=== PATIENT | female | born 1980 | race Caucasian/White ===

== ENCOUNTER → 2016-05-30 | Outpatient (CLI) | payer OTHER ==
[~2016-05-30] MED LIST: ACET-1256 PO; ACET325T96 PO; CIPR-255 PO; CYAN3INJ IM; DIPH25CA65 PO; HYDR-5688 PO; HYDR25CA PO; LISI-461 PO; LISI10TA PO; LORA-741 PO; LORA10TA51 PO; METR-163 PO; OMEP20TA PO; OMEP40CA PO; ONDA4TAB10 SL; OXYC1TAB3 PO; PENI-82 PO; PROM25TA9 PO; SERT-234 PO; SERT100T PO; VNTHFA/IN INH; ZLF/100 PO; ZLF/50 PO
== END | disposition home or self-care (01) ==
LOC: C.PAPS 11:44
PROVIDERS: ATTEND Obstetrics & Gynecology
DX: Z12.4 Encounter for screening for malignant neoplasm of cervix (principal)

== ENCOUNTER 2016-09-04 14:09 | Emergency (ER) | payer OTHER ==
[~2016-09-04] VITALS: Ht 154.9 cm; Wt 63.5 kg
[~2016-09-04 14:09] MED LIST changes: -ACET-1256 PO; -CIPR-255 PO; -HYDR-5688 PO; -LISI-461 PO; -LORA-741 PO; -LORA10TA51 PO; -METR-163 PO; -OMEP20TA PO; -ONDA4TAB10 SL; -OXYC1TAB3 PO; -PENI-82 PO; -PROM25TA9 PO; -SERT100T PO; -VNTHFA/IN INH; -ZLF/100 PO; -ZLF/50 PO
[2016-09-04 14:14] VITALS: TEMP 36.7; Ht 154.9 cm; Wt 63.5 kg
[2016-09-04] MEDS ORDERED: LORAZEPAM 2 MG/ML 1 ML VIAL IV STA (14:26)
--- NOTE | 2016-09-04 14:28 | EMERGENCY ROOM VISIT NOTE ---
History Report prepared by Kannan: Sanam Mcghee Under the Supervision of: Dr. Venkatesh Urban M.D. First contact with patient: 14:22 Chief Complaint: FLANK PAIN Stated Complaint: L SIDE PAIN,NAUSEA,BOWEL CHANGE History of Present Illness The patient is a 36 year old female who presents to the Emergency Room with complaints of constant left sided abdominal pain beginning 4 days prior to arrival. She notes the pain radiates around to her left flank. The patient is experiencing nausea, vomiting and chills. She has a history of diverticulitis around this time of year. She currently has diverticulosis. The patient notes a decrease in appetite. She is experiencing trouble controlling her bowels and notes episodes of diarrhea followed by constipation. She denies recent fevers. 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 Review of Systems All systems have been listed, reviewed, and are negative other than those previously mentioned. Please see Additional Medical History Sheet. Past Medical & Surgical Medical Problems: (1) Asthma (2) COPD (chronic obstructive pulmonary disease) (3) Diverticulosis Colon (W/O Ment Of Hemorrhage) (4) Hypertension (5) Migraine Family History Cancer Diabetes mellitus Heart disease Hypertension Lung disease Social History Smoking Status: Current Every Day Smoker Drug Use: none Marital Status: Housing Status: lives with family Occupation Status: unemployed Current/Historical Medications Scheduled Cyanocobalamin (Vitamin B-12 Inj), 1 ML IM MONTHLY Lisinopril (Prinivil), 10 MG PO DAILY Omeprazole (Prilosec), 40 MG PO QAM Sertraline (Zoloft), 150 MG PO DAILY Scheduled PRN Acetaminophen Tab (Tylenol), 650 MG PO QID PRN for Pain or Fever Hydrocodone/Acetaminophen 5MG/325MG (Allen 5MG/325MG), 1-2 TABLETS PO Q4 PRN for abdominal pain Loratadine (Claritin), 10 MG PO DAILY PRN for ALLERGIC REACTION Allergies Coded Allergies: Pseudoephedrine (Verified Allergy, Mild, 09/04/16) Triprolidine (Verified Allergy, Mild, 09/04/16) Amoxicillin (Verified Allergy, Unknown, UNKNOWN, 09/04/16) Azithromycin (Verified Allergy, Unknown, UNKNOWN, 09/04/16) Butorphanol (Verified Allergy, Unknown, 09/04/16) Clavulanic Acid (Verified Allergy, Unknown, UNKNOWN, 09/04/16) Tripelennamine (Verified Allergy, Unknown, 09/04/16) Doxycycline (Verified Adverse Reaction, Intermediate, nausea, 09/04/16) Uncoded Allergies: STEROIDS (Adverse Reaction, Unknown, flushing, 08/14/15) Physical Exam Vital Signs Date Time Temp Pulse Resp B/P (MAP) Pulse Ox O2 Delivery O2 Flow Rate FiO2 09/04/16 18:13 76 18 117/58 98 09/04/16 17:23 78 18 119/55 97 Room Air 09/04/16 15:47 57 18 108/42 99 Room Air 09/04/16 14:14 36.7 80 16 118/69 98 Room Air Physical Exam GENERAL: Patient awake, alert, oriented x 3. Patient follows commands. Patient does not appear toxic. Patient is adequately hydrated and well- nourished. SKIN: No erythema, pallor, cyanosis or rash HEENT: Normal head, pupils equal, reactive to light and accommodation. Oral cavity and posterior pharynx appear normal. Neck: Without adenopathy, no neck vein distention. LUNGS: Clear to auscultation. No wheezes, no rales, no rhonchi. HEART: No murmurs. No gallops. No rubs ABDOMEN: Vague tenderness to left lower quadrant. No masses, no rebound, no hepatomegaly or splenomegaly. EXTREMITIES: No signs of trauma. No pedal or pretibial edema. No calf or thigh tenderness. NEUROLOGIC: Cranial nerves II-XII within normal limits. No gross motor sensory function deficits. Medical Decision & Procedures ER Provider Diagnostic Interpretation: CT results are interpretations by the radiologist and per my review. CT SCAN OF THE ABDOMEN AND PELVIS WITH IV CONTRAST CLINICAL HISTORY: Left lower quadrant abdominal pain. COMPARISON STUDY: Abdominal CT dated 08/14/2015. TECHNIQUE: Following the IV administration of 116 cc of Optiray 320, CT scan of the abdomen and pelvis is performed from the lung bases to the proximal femora. Images are reviewed in the axial, sagittal, and coronal planes. IV contrast was administered without complication. Automated dose control exposure was utilized. CT DOSE: 347.30 mGy.cm FINDINGS: Lung bases: The heart is normal in size and without pericardial effusion. The lung bases are clear. Liver: The contrast-enhanced liver is normal in size, contour, and attenuation. There is no intrahepatic biliary ductal dilatation. The hepatic veins and portal veins are patent. Gallbladder: Unremarkable. Spleen: Normal in size and attenuation. Pancreas: Unremarkable. Adrenal glands: Unremarkable. Kidneys: The contrast enhanced kidneys are normal in size and without hydronephrosis. The kidneys enhance symmetrically. Small renal cysts measure up to 1.9 cm. Additional subcentimeter cortical hypodensities also likely represent cysts but are too small for definitive characterization. Abdominal vasculature: The abdominal aorta is normal in course and caliber. Bowel: The small bowel and colon are normal in course and caliber. There is mild to moderate sigmoid diverticulosis without CT evidence of acute diverticulitis. Mild wall thickening is again seen in the sigmoid colon. There are prominent perisigmoid lymph nodes which measure up to 7 mm in short axis. The appendix is not identified and reported surgically absent. Peritoneum: There is no intraperitoneal free air or abdominal ascites. There is a small fat-containing umbilical hernia. Lymphadenopathy: None. Pelvic viscera: The bladder, uterus, and adnexa are normal as visualized. Skeletal structures: No lytic or blastic lesions are seen. There are bilateral pars defects at L5. No anterolisthesis is seen at L5-S1. IMPRESSION: 1. There are no acute infectious or inflammatory findings in the abdomen or pelvis. 2. Mild to moderate sigmoid diverticulosis without CT evidence of acute diverticulitis. 3. Mild chronic wall thickening of the sigmoid colon is similar to previous and likely related to chronic diverticular disease. Prominent pericolonic lymph nodes are also unchanged. If not recently performed, follow-up with a nonemergent colonoscopy is recommended for further assessment of the colon. 4. Additional findings as above. Electronically signed by: Joe Whitley M.D. 09/04/2016 5:33 PM Dictated Date/Time: 09/04/2016 5:26 PM Laboratory Results 09/04/16 15:00 Red Blood Count 4.41, Mean Corpuscular Volume 90.7, Mean Corpuscular Hemoglobin 30.8, Mean Corpuscular Hemoglobin Concent 34.0, Mean Platelet Volume 10.3, Neutrophils (%) (Auto) 55.0, Lymphocytes (%) (Auto) 31.9, Monocytes (%) (Auto) 9.9, Eosinophils (%) (Auto) 2.4, Basophils (%) (Auto) 0.7, Neutrophils # (Auto) 3.68, Lymphocytes # (Auto) 2.14, Monocytes # (Auto) 0.66, Eosinophils # (Auto) 0.16, Basophils # (Auto) 0.05 09/04/16 15:00 Test 09/04/16 15:00 09/04/16 15:04 White Blood Count 6.70 K/uL (4.8-10.8) Red Blood Count 4.41 M/uL (4.2-5.4) Hemoglobin 13.6 g/dL (12.0-16.0) Hematocrit 40.0 % (37-47) Mean Corpuscular Volume 90.7 fL (80-100) Mean Corpuscular Hemoglobin 30.8 pg (25-34) Mean Corpuscular Hemoglobin Concent 34.0 g/dl (32-36) Platelet Count 246 K/uL (130-400) Mean Platelet Volume 10.3 fL (7.4-10.4) Neutrophils (%) (Auto) 55.0 % Lymphocytes (%) (Auto) 31.9 % Monocytes (%) (Auto) 9.9 % Eosinophils (%) (Auto) 2.4 % Basophils (%) (Auto) 0.7 % Neutrophils # (Auto) 3.68 K/uL (1.4-6.5) Lymphocytes # (Auto) 2.14 K/uL (1.2-3.4) Monocytes # (Auto) 0.66 K/uL (0.11-0.59) Eosinophils # (Auto) 0.16 K/uL (0-0.5) Basophils # (Auto) 0.05 K/uL (0-0.2) RDW Standard Deviation 42.9 fL (36.4-46.3) RDW Coefficient of Variation 12.9 % (11.5-14.5) Immature Granulocyte % (Auto) 0.1 % Immature Granulocyte # (Auto) 0.01 K/uL (0.00-0.02) Anion Gap 6.0 mmol/L (3-11) Est Creatinine Clear Calc Drug Dose 77.9 ml/min Estimated GFR () 101.4 Estimated GFR (Non- 87.5 BUN/Creatinine Ratio 10.0 (10-20) Calcium Level 8.9 mg/dl (8.5-10.1) Total Bilirubin 0.3 mg/dl (0.2-1) Aspartate Amino Transf (AST/SGOT) 11 U/L (15-37) Alanine Aminotransferase (ALT/SGPT) 26 U/L (12-78) Alkaline Phosphatase 88 U/L (45-117) Total Protein 7.1 gm/dl (6.4-8.2) Albumin 3.7 gm/dl (3.4-5.0) Globulin 3.4 gm/dl (2.5-4.0) Albumin/Globulin Ratio 1.1 (0.9-2) Lipase 132 U/L (73-393) Urine Color DK YELLOW Urine Appearance CLOUDY (CLEAR) Urine pH 5.5 (4.5-7.5) Urine Specific [place] 1.029 (1.000-1.030) Urine Protein NEG (NEG) Urine Glucose (UA) NEG (NEG) Urine Ketones TRACE (NEG) Urine Occult Blood NEG (NEG) Urine Nitrite NEG (NEG) Urine Bilirubin NEG (NEG) Urine Urobilinogen NEG (NEG) Urine Leukocyte Esterase NEG (NEG) Urine WBC (Auto) 1-5 /hpf (0-5) Urine RBC (Auto) 0-4 /hpf (0-4) Urine Hyaline Casts (Auto) 0 /lpf (0-5) Urine Epithelial Cells (Auto) >30 /lpf (0-5) Urine Bacteria (Auto) 1+ (NEG) Urine Crystals CALCIUM OXALATE (NONE Urine Pathogenic Casts /lpf (0) Urine Mucus PRESENT (NONE PRSENT) Urine Test NEG (NEG) Laboratory results as stated above per my review. Medications Administered Medications (Trade) Dose Ordered Sig/Art Route Start Time Stop Time Status Last Admin Dose Admin Sodium Chloride 1,000 ml @ 1,000 mls/hr Q1H ONCE IV 09/04/16 14:30 09/04/16 15:29 DC 09/04/16 14:56 1,000 MLS/HR Lorazepam (Ativan Inj) 1 mg NOW STAT IV 09/04/16 14:26 09/04/16 14:30 DC 09/04/16 14:56 1 MG Ondansetron HCl (Zofran Inj) 4 mg Q1HWA PRN IV 09/04/16 14:30 09/04/16 18:34 DC 09/04/16 14:56 4 MG Morphine Sulfate (MoRPHine SULFATE INJ) 4 mg Q1H PRN IV 09/04/16 16:00 09/04/16 18:34 DC 09/04/16 17:30 4 MG Acetaminophen/ Hydrocodone Bitart (Allen 5/325mg Home Pack) 1 homepack UD ONCE PO 09/04/16 18:00 09/04/16 18:01 DC 09/04/16 18:00 1 HOMEPACK ED Course 1422: Past medical records reviewed. The patient was evaluated in room B2. A complete history and physical examination was performed. 1426: Ativan Inj 1 mg IV, Zofran Inj 4 mg IV, Sodium Chloride 1,000 ml @ 1,000 mls/hr IV. 1600: Morphine Sulfate Inj 4 mg IV. 1800: Allen 5/325 mg Home Pack 1 homepack PO. 1803: Upon reevaluation, the patient appeared to have improvement of her symptoms. I discussed today's findings with her. She verbalized agreement of the treatment plan. She was discharged home. Medical Decision Nurses notes reviewed. Medical history sheet reviewed. Differential diagnosis includes but is not limited to: gastroenteritis, diverticulitis, bowel obstruction, cholecystitis. Medication Reconciliation: I attest that I have personally reviewed the patient' s current medication list. Blood pressure Screening: Patient was found to have normal blood pressure on screening and does not require follow up. The patient has a history of diverticulosis but no diverticulitis. In light of her pain she was ordered a CT of her abdomen/pelvis. That does not reveal any diarrhea acute diverticulitis. She does have some bowel wall thickening. No stones were seen on imaging. She does have calcium oxalate in her urine. The patient does not have urinary tract infection. The patient will be sent home with a urine strainer. She is given a small prescription for Allen. She is to follow-up with a family physician and she will need a colonoscopy in the future. Her last one was 2 years ago. [place] Drug Monitoring Program Search Results: patient reviewed within database, no issues identified Impression Primary Impression: Nonspecific abdominal pain Additional Impression: Anxiety Scribe Attestation The scribe's documentation has been prepared under my direction and personally reviewed by me in its entirety. I confirm that the note above accurately reflects all work, treatment, procedures, and medical decision making performed by me. Departure Information Dispostion Home / Self-Care Prescriptions Hydrocodone/Acetaminophen 5MG/325MG (Allen 5MG/325MG) Tab 1-2 TABLETS PO Q4 Y for abdominal pain, #20 TAB PRN PAIN Prov: Venkatesh Urban M.D. 09/04/16 Referrals ProSalo M.D. (PCP) Forms HOME CARE DOCUMENTATION FORM, IMPORTANT VISIT INFORMATION Patient Instructions My [facility] Additional Instructions 1-2 hydrocodone every 4 hours as needed for moderate to severe pain. Drink extra fluids. Strain your urine. Follow-up with your family physician within the next 7 days. Return here sooner if pain is getting worse. Problem Qualifiers
[2016-09-04] MEDS ORDERED: ONDANSETRON INJ 2 MG/ML 2 ML VIAL IV PRN (14:30)
[2016-09-04] MEDS ORDERED: SODIUM CHLORIDE 0.9% 1000ML 1,000 ML IV ONE (14:30)
[2016-09-04 15:22] LABS: BASO % 0.7 %; BASO ABS # 0.05 K/uL (0-0.2); COMPLETE YES; EOS % 2.4 %; IG% 0.1 %; LYMPH % 31.9 %; LYMPH ABS # 2.14 K/uL (1.2-3.4); MEAN CELL VOLUME 90.7 fL (80-100); MEAN CORPUSCULAR HEMOGLOBIN 30.8 pg (25-34); MEAN PLATELET VOLUME 10.3 fL (7.4-10.4); MONO % 9.9 %; PLATELET COUNT 246 K/uL (130-400); RED BLOOD COUNT 4.41 M/uL (4.2-5.4)
[2016-09-04 15:31] LABS: URINE APPEARANCE CLOUDY (CLEAR); URINE COLOR DK YELLOW; URINE EPITHELIAL CELL AUTO >30 /lpf (0-5); URINE NITRITE NEG (NEG); URINE PH 5.5 (4.5-7.5); URINE SPECIFIC GRAVITY 1.029 (1.000-1.030); UROBILINOGEN NEG (NEG); ZZUR CULT IF INDIC CLEAN CATCH YES
[2016-09-04 15:36] LABS: MANUAL MICROSCOPIC REQUIRED? NO; REVIEW REQ? YES
[2016-09-04 15:38] LABS: URINE BILIRUBIN NEG (NEG)
[2016-09-04 15:39] LABS: CALCIUM 8.9 mg/dl (8.5-10.1); CREATININE 0.86 mg/dl (0.60-1.20); POTASSIUM 3.5 mmol/L (3.5-5.1)
[2016-09-04 15:41] LABS: ALB/GLOB RATIO 1.1 (0.9-2)
[2016-09-04 15:44] LABS: URINE MUCUS PRESENT (NONE PRSENT)
[2016-09-04] MEDS: MoRPHine SULFATE 4 MG/ML 1 ML CARP\\VIAL IV PRN ×2 (16:10→17:30)
[2016-09-04] MEDS ORDERED: OPTIRAY 320 IV PRN (17:30)
--- NOTE | 2016-09-04 17:35 | DIAGNOSTIC IMAGING REPORT ---
CT SCAN OF THE ABDOMEN AND PELVIS WITH IV CONTRAST CLINICAL HISTORY: Left lower quadrant abdominal pain. COMPARISON STUDY: Abdominal CT dated 08/14/2015. TECHNIQUE: Following the IV administration of 116 cc of Optiray 320, CT scan of the abdomen and pelvis is performed from the lung bases to the proximal femora. Images are reviewed in the axial, sagittal, and coronal planes. IV contrast was administered without complication. Automated dose control exposure was utilized. CT DOSE: 347.30 mGy.cm FINDINGS: Lung bases: The heart is normal in size and without pericardial effusion. The lung bases are clear. Liver: The contrast-enhanced liver is normal in size, contour, and attenuation. There is no intrahepatic biliary ductal dilatation. The hepatic veins and portal veins are patent. Gallbladder: Unremarkable. Spleen: Normal in size and attenuation. Pancreas: Unremarkable. Adrenal glands: Unremarkable. Kidneys: The contrast enhanced kidneys are normal in size and without hydronephrosis. The kidneys enhance symmetrically. Small renal cysts measure up to 1.9 cm. Additional subcentimeter cortical hypodensities also likely represent cysts but are too small for definitive characterization. Abdominal vasculature: The abdominal aorta is normal in course and caliber. Bowel: The small bowel and colon are normal in course and caliber. There is mild to moderate sigmoid diverticulosis without CT evidence of acute diverticulitis. Mild wall thickening is again seen in the sigmoid colon. There are prominent perisigmoid lymph nodes which measure up to 7 mm in short axis. The appendix is not identified and reported surgically absent. Peritoneum: There is no intraperitoneal free air or abdominal ascites. There is a small fat-containing umbilical hernia. Lymphadenopathy: None. Pelvic viscera: The bladder, uterus, and adnexa are normal as visualized. Skeletal structures: No lytic or blastic lesions are seen. There are bilateral pars defects at L5. No anterolisthesis is seen at L5-S1. IMPRESSION: 1. There are no acute infectious or inflammatory findings in the abdomen or pelvis. 2. Mild to moderate sigmoid diverticulosis without CT evidence of acute diverticulitis. 3. Mild chronic wall thickening of the sigmoid colon is similar to previous and likely related to chronic diverticular disease. Prominent pericolonic lymph nodes are also unchanged. If not recently performed, follow-up with a nonemergent colonoscopy is recommended for further assessment of the colon. 4. Additional findings as above. Electronically signed by: Joe Whitley M.D. 09/04/2016 5:33 PM Dictated Date/Time: 09/04/2016 5:26 PM
[2016-09-04] MEDS ORDERED: HYDR-5688 PO (17:53)
[2016-09-04] MEDS ORDERED: NORCO 5/325MG HOME PACK PO ONE (18:00)
[2016-09-04 18:13] VITALS: BP 117/58; PULSE 76; O2SAT 98
[2016-11-04] MEDS ORDERED: LORA10TA51 PO (14:55)
== END 2016-09-04 18:15 | disposition home or self-care (01) ==
LOC: C.EDB 14:10
DX: R10.9 Unspecified abdominal pain (principal); F41.9 Anxiety disorder, unspecified; J45.909 Unspecified asthma, uncomplicated; J44.9 Chronic obstructive pulmonary disease, unspecified; K57.90 Diverticulosis of intestine, part unspecified, without perforation or abscess without bleeding; I10 Essential (primary) hypertension; Z83.3 Family history of diabetes mellitus; Z82.49 Family history of ischemic heart disease and other diseases of the circulatory system; F17.200 Nicotine dependence, unspecified, uncomplicated

== ENCOUNTER 2016-11-04 16:05 | Emergency (ER) | payer OTHER ==
[~2016-11-04] VITALS: Ht 154.9 cm; Wt 64.0 kg
[~2016-11-04 16:05] MED LIST changes: -DIPH25CA65 PO; +HYDR-5688 PO; -HYDR25CA PO; +LORA10TA51 PO
[2016-11-04 16:20] VITALS: TEMP 36.8; Ht 154.9 cm; Wt 64.0 kg
[2016-11-04] MEDS ORDERED: ONDANSETRON 8 MG/54 ML D5W IV STA (17:29)
[2016-11-04] MEDS ORDERED: SODIUM CHLORIDE 0.9% 1000ML 1,000 ML IV STA ×2 (17:29)
[2016-11-04] MEDS ORDERED: OPTIRAY 320 IV PRN (17:45)
[2016-11-04] MEDS: MoRPHine SULFATE 4 MG/ML 1 ML CARP\\VIAL IV PRN ×2 (17:59→21:07)
[2016-11-04 18:00] LABS: BASO % 0.3 %; BASO ABS # 0.04 K/uL (0-0.2); COMPLETE YES; HEMATOCRIT 42.5 % (37-47); IG% 0.4 %; LYMPH % 15.4 %; LYMPH ABS # 2.11 K/uL (1.2-3.4); MEAN CELL VOLUME 89.7 fL (80-100); MEAN CORPUSCULAR HEMOGLOBIN 31.2 pg (25-34); MEAN CORPUSCULAR HGB CONC 34.8 g/dl (32-36); MEAN PLATELET VOLUME 10.5 fL (7.4-10.4); NEUT % 73.9 %; PLATELET COUNT 277 K/uL (130-400); RED BLOOD COUNT 4.74 M/uL (4.2-5.4); WHITE BLOOD COUNT 13.67 K/uL (4.8-10.8)
[2016-11-04] MEDS ORDERED: OMEP20TA PO (18:16)
[2016-11-04] MEDS ORDERED: LISI-461 PO (18:16)
[2016-11-04] MEDS ORDERED: ZLF/100 PO (18:16)
[2016-11-04] MEDS ORDERED: ZLF/50 PO (18:16)
[2016-11-04] MEDS ORDERED: VNTHFA/IN INH (18:16)
[2016-11-04] MEDS ORDERED: ACET-1256 PO (18:16)
[2016-11-04 18:24] LABS: PREG INTERNAL NEGATIVE QC NEG CLEAR BACKGROUND; PREG INTERNAL POSITIVE QC POS CONTROL LINE
[2016-11-04 18:34] LABS: BUN/CREATININE RATIO 7.1 (10-20); CALCIUM 9.7 mg/dl (8.5-10.1); CREATININE 0.82 mg/dl (0.60-1.20); POTASSIUM 3.3 mmol/L (3.5-5.1)
[2016-11-04 19:01] LABS: URINE APPEARANCE CLEAR (CLEAR); URINE BILIRUBIN NEG (NEG); URINE COLOR YELLOW; URINE NITRITE NEG (NEG); URINE PH 6.5 (4.5-7.5); URINE SPECIFIC GRAVITY 1.008 (1.000-1.030); UROBILINOGEN NEG (NEG); ZZUR CULT IF INDIC CLEAN CATCH NO
[2016-11-04 19:02] LABS: MANUAL MICROSCOPIC REQUIRED? NO; REVIEW REQ? NO
--- NOTE | 2016-11-04 20:49 | DIAGNOSTIC IMAGING REPORT ---
ABD/PELVIS IV AND ORAL CONT CT DOSE: 641.09 mGycm HISTORY: Pain LLQ pain, ?colitis vs diverticulitis TECHNIQUE: Multiaxial CT images of the abdomen and pelvis were performed following the use of intravenous and oral contrast. A dose lowering technique was utilized adhering to the principles of ALARA. COMPARISON STUDY: 09/04/2016 FINDINGS: Lung bases are clear. Liver spleen and pancreas appear unremarkable. Gallbladder is negative for distention. Kidneys enhance uniformly. There is right renal cyst as well as a 5 mm left renal cyst unchanged. Spleen is uniform. There are findings of acute sigmoid diverticulitis. There is considerable wall thickening of the proximal to mid sigmoid colon with moderate pericolonic infiltrative change. Several pericolonic reactive nodes are present. The uterus is anteflexed. Bowel pattern is considered nonobstructive. There is a small bowel segment in the left upper quadrant which appears moderately distended. This may represent a reactive ileus. IMPRESSION: 1. Acute sigmoid diverticulitis. 2. Moderate to rather significant pericolonic infiltrative change although there is no evidence for abscess collection or obstruction. 3. Mild reactive small bowel ileus. 4. Small bilateral ovarian follicular cysts 5. The colitis present is somewhat progressive as compared to the prior study. The above report was generated using voice recognition software. It may contain grammatical, syntax or spelling errors. Electronically signed by: Timi Daily M.D. 11/04/2016 8:47 PM Dictated Date/Time: 11/04/2016 8:43 PM
[2016-11-04] MEDS ORDERED: METRONIDAZOLE 250 MG TAB PO STA ×2 (20:57)
[2016-11-04] MEDS ORDERED: CIPROFLOXACIN 500 MG TAB PO STA ×2 (20:57)
[2016-11-04] MEDS ORDERED: PHENERGAN 25MG HOMEPACK PO ONE (21:00)
[2016-11-04] MEDS ORDERED: OXYCODONE IR HOME PACK PO ONE (21:00)
--- NOTE | 2016-11-04 21:04 | EMERGENCY ROOM VISIT NOTE ---
History Report prepared by Kannan: Melanie Gomes Under the Supervision of: Dr. Antonio Montalvo M.D. First contact with patient: 17:09 Chief Complaint: GI ASSESSMENT Stated Complaint: LF SIDE PAIN Nursing Triage Summary: "I went to the Gi doctor because I have diverticulosis and she said I needed to get another CAT scan and they couldn't fit me in, so I just came. I'm having abd pain and diarrhea." per pt. History of Present Illness The patient is a 36 year old female who presents to the Emergency Room with complaints of constant LLQ abdominal pain beginning today. The patient states that she has a history of diverticulitis. She reports that she called her PCPs office today but they were not able to get her in. She notes that Dr. Herring is her GI doctor and after seeing her today she recommended getting a CT scan but she was not able to get it done. The patient reports that her pain has worsened since leaving Dr. Herring's office. She notes that urinating and moving her bowels worsens her pain. The patient states that she was seen here 2 months ago. She complains of diarrhea and urinary and bowel urgency. Pt denies LOC, headache, fevers, chills, diaphoresis, visual changes, neck pain, chest pain, breathing difficulties, nausea, vomiting, back pain, melena, hematochezia, urinary symptoms, numbness, weakness, lymphadenopathy, rash, or other complaints. The patient sates that this feels similar to her previous episodes of diverticulitis. Source of History: patient Onset: today Position: abdomen (LLQ) Timing: constant Modifying Factors (Worsening): other (urination and moving bowels) Review of Systems See HPI for pertinent positives and negatives. A total of ten systems were reviewed and were otherwise negative. Past Medical & Surgical Medical Problems: (1) Asthma (2) COPD (chronic obstructive pulmonary disease) (3) Diverticulosis Colon (W/O Ment Of Hemorrhage) (4) Hypertension (5) Migraine Family History Cancer Diabetes mellitus Heart disease Hypertension Lung disease Social History Smoking Status: Current Every Day Smoker Drug Use: none Marital Status: Housing Status: lives with family Occupation Status: unemployed Current/Historical Medications Scheduled Lisinopril (Lisinopril), 10 MG PO QAM Omeprazole (Omeprazole), 40 MG PO QAM Sertraline HCl (Sertraline HCl), 50 MG PO QAM Sertraline HCl (Sertraline HCl), 100 MG PO QAM Scheduled PRN Acetaminophen (Tylenol), 1,000 MG PO Q6H PRN for Pain Albuterol Hfa (Ventolin Hfa), 1-2 PUFFS INH Q4-6HRS PRN for SOB/Wheezing Loratadine (Claritin), 10 MG PO DAILY PRN for Allergy Symptoms Allergies Coded Allergies: Pseudoephedrine (Verified Allergy, Mild, 09/04/16) Triprolidine (Verified Allergy, Mild, 09/04/16) Amoxicillin (Verified Allergy, Unknown, UNKNOWN, 09/04/16) Azithromycin (Verified Allergy, Unknown, UNKNOWN, 09/04/16) Butorphanol (Verified Allergy, Unknown, 09/04/16) Clavulanic Acid (Verified Allergy, Unknown, UNKNOWN, 09/04/16) Tripelennamine (Verified Allergy, Unknown, 09/04/16) Doxycycline (Verified Adverse Reaction, Intermediate, nausea, 09/04/16) Uncoded Allergies: STEROIDS (Adverse Reaction, Unknown, flushing, 08/14/15) Physical Exam Vital Signs Date Time Temp Pulse Resp B/P (MAP) Pulse Ox O2 Delivery O2 Flow Rate FiO2 11/04/16 19:24 11/04/16 18:49 11/04/16 18:00 91 18 127/80 99 Room Air 11/04/16 16:20 36.8 97 18 146/81 98 Room Air Physical Exam GENERAL: Awake, alert, well-appearing, in no distress HENT: Normocephalic, atraumatic. Oropharynx unremarkable. EYES: Normal conjunctiva. Sclera non-icteric. NECK: Supple. No nuchal rigidity. FROM. No JVD. RESPIRATORY: Clear to auscultation. CARDIAC: Regular rate, normal rhythm. Extremities warm and well perfused. Pulses equal. ABDOMEN: Soft, non-distended. LLQ tenderness to palpation. No rebound or guarding. No masses. RECTAL: Deferred. MUSCULOSKELETAL: Chest examination reveals no tenderness. The back is symmetrical on inspection without obvious abnormality. There is no CVA tenderness to palpation. No joint edema. LOWER EXTREMITIES: Calves are equal size bilaterally and non-tender. No edema. No discoloration. NEURO: Normal sensorium. No sensory or motor deficits noted. SKIN: No rash or jaundice noted. Medical Decision & Procedures ER Provider Diagnostic Interpretation: ABD/PELVIS IV AND ORAL CONT CT DOSE: 641.09 mGycm HISTORY: Pain LLQ pain, ?colitis vs diverticulitis TECHNIQUE: Multiaxial CT images of the abdomen and pelvis were performed following the use of intravenous and oral contrast. A dose lowering technique was utilized adhering to the principles of ALARA. COMPARISON STUDY: 09/04/2016 FINDINGS: Lung bases are clear. Liver spleen and pancreas appear unremarkable. Gallbladder is negative for distention. Kidneys enhance uniformly. There is right renal cyst as well as a 5 mm left renal cyst unchanged. Spleen is uniform. There are findings of acute sigmoid diverticulitis. There is considerable wall thickening of the proximal to mid sigmoid colon with moderate pericolonic infiltrative change. Several pericolonic reactive nodes are present. The uterus is anteflexed. Bowel pattern is considered nonobstructive. There is a small bowel segment in the left upper quadrant which appears moderately distended. This may represent a reactive ileus. IMPRESSION: 1. Acute sigmoid diverticulitis. 2. Moderate to rather significant pericolonic infiltrative change although there is no evidence for abscess collection or obstruction. 3. Mild reactive small bowel ileus. 4. Small bilateral ovarian follicular cysts 5. The colitis present is somewhat progressive as compared to the prior study. The above report was generated using voice recognition software. It may contain grammatical, syntax or spelling errors. Electronically signed by: Timi Daily M.D. 11/04/2016 8:47 PM Dictated Date/Time: 11/04/2016 8:43 PM Laboratory Results 11/04/16 16:50 Red Blood Count 4.74, Mean Corpuscular Volume 89.7, Mean Corpuscular Hemoglobin 31.2, Mean Corpuscular Hemoglobin Concent 34.8, Mean Platelet Volume 10.5, Neutrophils (%) (Auto) 73.9, Lymphocytes (%) (Auto) 15.4, Monocytes (%) (Auto) 9.0, Eosinophils (%) (Auto) 1.0, Basophils (%) (Auto) 0.3, Neutrophils # (Auto) 10.11, Lymphocytes # (Auto) 2.11, Monocytes # (Auto) 1.23, Eosinophils # (Auto) 0.13, Basophils # (Auto) 0.04 11/04/16 16:50 Test 11/04/16 16:50 11/04/16 18:44 White Blood Count 13.67 K/uL (4.8-10.8) Red Blood Count 4.74 M/uL (4.2-5.4) Hemoglobin 14.8 g/dL (12.0-16.0) Hematocrit 42.5 % (37-47) Mean Corpuscular Volume 89.7 fL (80-100) Mean Corpuscular Hemoglobin 31.2 pg (25-34) Mean Corpuscular Hemoglobin Concent 34.8 g/dl (32-36) Platelet Count 277 K/uL (130-400) Mean Platelet Volume 10.5 fL (7.4-10.4) Neutrophils (%) (Auto) 73.9 % Lymphocytes (%) (Auto) 15.4 % Monocytes (%) (Auto) 9.0 % Eosinophils (%) (Auto) 1.0 % Basophils (%) (Auto) 0.3 % Neutrophils # (Auto) 10.11 K/uL (1.4-6.5) Lymphocytes # (Auto) 2.11 K/uL (1.2-3.4) Monocytes # (Auto) 1.23 K/uL (0.11-0.59) Eosinophils # (Auto) 0.13 K/uL (0-0.5) Basophils # (Auto) 0.04 K/uL (0-0.2) RDW Standard Deviation 45.1 fL (36.4-46.3) RDW Coefficient of Variation 13.7 % (11.5-14.5) Immature Granulocyte % (Auto) 0.4 % Immature Granulocyte # (Auto) 0.05 K/uL (0.00-0.02) Anion Gap 6.0 mmol/L (3-11) Est Creatinine Clear Calc Drug Dose 82.0 ml/min Estimated GFR () 107.5 Estimated GFR (Non- 92.7 BUN/Creatinine Ratio 7.1 (10-20) Calcium Level 9.7 mg/dl (8.5-10.1) Total Bilirubin 0.6 mg/dl (0.2-1) Direct Bilirubin 0.1 mg/dl (0-0.2) Aspartate Amino Transf (AST/SGOT) 10 U/L (15-37) Alanine Aminotransferase (ALT/SGPT) 18 U/L (12-78) Alkaline Phosphatase 117 U/L (45-117) Total Protein 8.3 gm/dl (6.4-8.2) Albumin 4.2 gm/dl (3.4-5.0) Lipase 87 U/L (73-393) Human Chorionic Gonadotropin, Qual NEG (NEG) Urine Color YELLOW Urine Appearance CLEAR (CLEAR) Urine pH 6.5 (4.5-7.5) Urine Specific [place] 1.008 (1.000-1.030) Urine Protein NEG (NEG) Urine Glucose (UA) NEG (NEG) Urine Ketones NEG (NEG) Urine Occult Blood NEG (NEG) Urine Nitrite NEG (NEG) Urine Bilirubin NEG (NEG) Urine Urobilinogen NEG (NEG) Urine Leukocyte Esterase NEG (NEG) Laboratory results reviewed by me Medications Administered Medications (Trade) Dose Ordered Sig/Art Route Start Time Stop Time Status Last Admin Dose Admin Sodium Chloride 1,000 ml @ 999 mls/hr Q1H1M STAT IV 11/04/16 17:29 11/04/16 18:29 DC 11/04/16 17:29 999 MLS/HR Sodium Chloride 1,000 ml @ 125 mls/hr Q8H STAT IV 11/04/16 17:29 11/05/16 01:28 11/04/16 17:29 125 MLS/HR Ondansetron HCl (Zofran 8mg Iv) 8 mg NOW STAT IV 11/04/16 17:29 11/04/16 17:31 DC 11/04/16 18:00 8 MG Morphine Sulfate (MoRPHine SULFATE INJ) 4 mg Q1H PRN IV 11/04/16 17:30 11/18/16 17:29 11/04/16 17:59 4 MG ED Course 1709: The patient was evaluated in room C9. A complete history and physical exam was performed. 172: Zofran 8mg IV, Sodium Chloride 1000 ml @ 125 mls/hr IV, Sodium Chloride 1000 ml @ 999 mls/hr IV, Morphine Sulfate 4mg IV. 1936: I reevaluated and updated the patient. She is going to CT scan. []: I reevaluated the patient. Discussed results and discharge instructions: She verbalized understanding and agreement. The patient is ready for discharge. Medical Decision Prior records/ancillary studies reviewed. Triage Nursing notes reviewed and agree them. The patient's history was concerning for abdominal pain. Differential diagnosis: Etiologies such as diverticulitis, PUD, biliary pathology, UTI, pancreatitis, obstruction, mesenteric ischemia, aortic pathology, infections, inflammatory bowel disease, renal colic, appendicitis, as well as others were entertained. Physical examination findings: As above. ER treatment provided: IV morphine times multiple doses IV Zofran IV normal saline On reassessment the patient felt better. Oral Cipro Oral Flagyl Diagnostics interpreted by me: The labs revealed a mild leukocytosis. Chemistry panel unremarkable. test negative. Imaging studies: CT scan as above The patient has acute sigmoid diverticulitis. There is no abscess or perforation. She has had this in the past. She will be treated with Cipro and Flagyl. She will follow-up with her GI clinic on Monday. If she worsens in any way she will return. Patient was educated.I gave my usual and customary discussion regarding this issue. By the evaluation outlined above emergent etiologies such as appendicitis, PUD , biliary pathology, UTI, pancreatitis, obstruction, mesenteric ischemia, aortic pathology, infections, inflammatory bowel disease, renal colic, as well as others were deemed relatively unlikely. The patient was informed about the findings as listed above. All questions were answered and she was pleased with the treatment. Return instructions were outlined and the patient was discharged in stable condition. Outpatient prescription management: Oxy IR 5mg 1-2 po Q4 hrs prn Cipro Flagyl Phenergan Referral: The patient was referred back to GI for a recheck of the current condition. Medication Reconcilliation Current Medication List: was personally reviewed by me Blood Pressure Screening Patient's blood pressure: Elevated blood pressure Blood pressure disposition: Elevated BP felt to be situational Impression Primary Impression: Diverticulitis of sigmoid colon Scribe Attestation The scribe's documentation has been prepared under my direction and personally reviewed by me in its entirety. I confirm that the note above accurately reflects all work, treatment, procedures, and medical decision making performed by me. Departure Information Dispostion Home / Self-Care Referrals Salo Flores M.D. (PCP) Patient Instructions My [facility] Additional Instructions DIVERTICULITIS INSTRUCTIONS: DO NOT drive, drink alcohol, operate machinery, or perform dangerous activities today. You were given medications in the ER that can affect your ability to safely function or operate a vehicle. Ciprofloxacin(Cipro) 500mg: Take one pill twice daily for 10 days for your bowel infection. All antibiotics can cause diarrhea. If this occurs and you feel worse or it does not resolve in 1-2 days follow up with your doctor or return to the Emergency Department as this could be signs of serious underlying problems. If you experience any pain in your tendons or any tendon injury return to the ER for re-evaluation. Any medication can cause an allergic reaction, stop the pills immediately and return to the ER for rash, hives, breathing difficulties, or swelling. Metronidazole(Flagyl) 500mg: Take one pill 3 times daily for 10 days for your bowel infection. DO NOT drink alcohol or take alcohol containing products with this medication. Any medication can cause an allergic reaction, stop the pills immediately and return to the ER for rash, hives, breathing difficulties, or swelling. Oxycodone (OxyIR) 5mg: Take 1-2 pills every four hours for breakthrough pain. Avoid alcohol, operating machinery or dangerous equipment, working on ladders or roofs, DRIVING, or situations where being under the influence may be dangerous. It is recommended to use an tyfl-hua-lqtuhma stool softener such as Colace, 100mg twice daily while taking this medication to avoid constipation. Ibuprofen(Motrin, Advil) may be used for fever or pain. Use 600mg every six hours as needed. Take with food. Avoid using more than 2400mg in a 24 hour period. Do not use 2400mg per day for more than three consecutive days without physician direction. Prolonged inappropriate use can lead to stomach upset or ulcers. (AND/OR) Acetaminophen(Tylenol) may be used for fever or pain. Use 1000mg every six hours as needed. Avoid using more than 4000mg in a 24 hour period. Phenergan 25mg tabs, one every six hours for nausea. Rest and drink plenty of fluids as tolerated. Slow sips of water or sports drinks are recommended instead of large amounts all at once. Continue current medications. Once your stomach is settled start with a clear liquid diet (jello, soup broth, etc.) and then advance as tolerated. You should avoid full, heavy meals for about 24 hrs from the time your symptoms resolved. Return to the ER immediately for worsening or persistent abdominal pain, vomiting, fevers, chest pains, difficulty breathing, black or bloody stools, worsening of your condition, or as needed. Follow up with your GI clinic on Monday for a recheck of your current condition.
[2016-11-04] MEDS ORDERED: PROM25TA9 PO (21:06)
[2016-11-04] MEDS ORDERED: METR-163 PO (21:06)
[2016-11-04] MEDS ORDERED: CIPR-255 PO (21:06)
[2016-11-04] MEDS ORDERED: OXYC1TAB3 PO (21:06)
[2016-11-04] MEDS ORDERED: EMPTY 8 DRAM VIAL ONE (21:07)
[2016-11-04 21:17] VITALS: BP 126/94; PULSE 108; O2SAT 97
== END 2016-11-04 21:32 | disposition home or self-care (01) ==
LOC: C.EDB 16:06 → C.EDC 21:32
DX: K57.90 Diverticulosis of intestine, part unspecified, without perforation or abscess without bleeding (principal); J45.909 Unspecified asthma, uncomplicated; J44.9 Chronic obstructive pulmonary disease, unspecified; I10 Essential (primary) hypertension; Z83.3 Family history of diabetes mellitus; Z82.49 Family history of ischemic heart disease and other diseases of the circulatory system; F17.200 Nicotine dependence, unspecified, uncomplicated

== ENCOUNTER 2016-11-06 12:37 | Emergency (ER) | payer OTHER ==
[~2016-11-06] VITALS: Ht 154.9 cm; Wt 63.2 kg
[~2016-11-06 12:37] MED LIST changes: +ACET-1256 PO; -ACET325T96 PO; +CIPR-255 PO; -CYAN3INJ IM; -HYDR-5688 PO; +LISI-461 PO; -LISI10TA PO; +METR-163 PO; +OMEP20TA PO; -OMEP40CA PO; +OXYC1TAB3 PO; +PROM25TA9 PO; -SERT-234 PO; +VNTHFA/IN INH; +ZLF/100 PO; +ZLF/50 PO
[2016-11-06 12:53] VITALS: TEMP 36.9; Ht 154.9 cm; Wt 63.2 kg
[2016-11-06] MEDS ORDERED: ONDANSETRON INJ 2 MG/ML 2 ML VIAL IV STA (13:39)
[2016-11-06] MEDS ORDERED: SODIUM CHLORIDE 0.9% 1000ML 1,000 ML IV STA (13:39)
[2016-11-06] MEDS ORDERED: MoRPHine SULFATE 4 MG/ML 1 ML CARP\\VIAL IV STA (13:39)
[2016-11-06 14:04] LABS: URINE APPEARANCE CLEAR (CLEAR); URINE BILIRUBIN NEG (NEG); URINE COLOR DK YELLOW; URINE NITRITE NEG (NEG); URINE PH 7.5 (4.5-7.5); URINE SPECIFIC GRAVITY 1.015 (1.000-1.030); UROBILINOGEN NEG (NEG); ZZUR CULT IF INDIC CLEAN CATCH NO
[2016-11-06 14:09] LABS: BASO % 0.4 %; BASO ABS # 0.04 K/uL (0-0.2); COMPLETE YES; EOS % 0.7 %; HEMATOCRIT 40.5 % (37-47); IG% 0.3 %; LYMPH % 13.3 %; LYMPH ABS # 1.37 K/uL (1.2-3.4); MEAN CELL VOLUME 91.4 fL (80-100); MEAN CORPUSCULAR HEMOGLOBIN 28.9 pg (25-34); MEAN CORPUSCULAR HGB CONC 31.6 g/dl (32-36); MEAN PLATELET VOLUME 10.3 fL (7.4-10.4); NEUT % 77.3 %; PLATELET COUNT 280 K/uL (130-400); RED BLOOD COUNT 4.43 M/uL (4.2-5.4); WHITE BLOOD COUNT 10.28 K/uL (4.8-10.8)
[2016-11-06 14:09] LABS: MANUAL MICROSCOPIC REQUIRED? NO; REVIEW REQ? NO
[2016-11-06 14:26] LABS: ALT/SGPT 15 U/L (12-78); BLOOD UREA NITROGEN 4 mg/dl (7-18); BUN/CREATININE RATIO 5.1 (10-20); CALCIUM 9.3 mg/dl (8.5-10.1); CARBON DIOXIDE 29 mmol/L (21-32); CHLORIDE 103 mmol/L (98-107); CREATININE 0.77 mg/dl (0.60-1.20); GLUCOSE 91 mg/dl (70-99); POTASSIUM 3.4 mmol/L (3.5-5.1); SODIUM 138 mmol/L (136-145)
[2016-11-06 14:28] LABS: ALKALINE PHOSPHATASE 100 U/L (45-117); AST/SGOT 11 U/L (15-37)
--- NOTE | 2016-11-06 14:34 | DIAGNOSTIC IMAGING REPORT ---
ABDOMEN 2VIEW W/PA CHEST RTN CLINICAL HISTORY: eval free air, obstruction diverticulitis COMPARISON STUDY: 08/05/2015 FINDINGS: Lungs are considered clear. Minimal platelike atelectasis left base. Bowel pattern is nonobstructive. Minimal reactive nonobstructive small bowel ileus. Contrast within the colon from prior contrast study. IMPRESSION: 1. Minimal atelectasis left base. 2. Chest is otherwise negative. 3. Minimal nonobstructive ileus of the abdomen. 4. No evidence for free air or obstructive change. The above report was generated using voice recognition software. It may contain grammatical, syntax or spelling errors. Electronically signed by: Timi Daily M.D. 11/06/2016 2:33 PM Dictated Date/Time: 11/06/2016 2:32 PM
[2016-11-06 16:25] VITALS: BP 125/73; PULSE 69; O2SAT 100
[2016-11-06] MEDS ORDERED: ONDA4TAB10 SL (16:27)
--- NOTE | 2016-11-06 16:30 | EMERGENCY ROOM VISIT NOTE ---
History First contact with patient: 13:28 Chief Complaint: GI ASSESSMENT Stated Complaint: DIVERTICULITIS,VOMITING AND DIARRHEA Nursing Triage Summary: triage note; pt reports she was dx with diverticulitis on monday here "i started puking at 0500 this morning and they told me if i started to puke to come back in." History of Present Illness The patient is a 36 year old female who presents to the Emergency Room with complaints of vomiting since this morning about 5:30 AM. She was seen in this emergency department 2 days ago and diagnosed with acute diverticulitis, she was sent home on Cipro and Flagyl which she has been taking without difficulty. She was also sent home on oxycodone for pain. She states she took an oxycodone pill this morning around 5 AM, and vomited shortly thereafter. Around 7 AM she took Prilosec and Phenergan to try to settle her stomach before taking her antibiotics, but she again vomited twice. She does not take her antibiotics to get today. She is concerned about being able to take the antibiotics while maintaining a liquid diet, and also states that she is feeling very hungry and wants to eat more. She denies any fevers or chills, worsening abdominal pain, blood in her stool, back pain, urinary symptoms. In fact, she does state that her lower abdominal pain associated with her diverticulitis has improved since being discharged. Review of Systems A complete 10 point review of systems was reviewed with the patient with pertinent positives and negatives as per history of present illness. All else were negative. Past Medical/Surgical History Medical Problems: (1) Asthma (2) COPD (chronic obstructive pulmonary disease) (3) Diverticulosis Colon (W/O Ment Of Hemorrhage) (4) Hypertension (5) Migraine Family History Cancer Diabetes mellitus Heart disease Hypertension Lung disease Social History Smoking Status: Never Smoker Drug Use: none Marital Status: Housing Status: lives with family Occupation Status: unemployed Current/Historical Medications Scheduled Ciprofloxacin Hcl (Cipro), 500 MG PO BID Lisinopril (Lisinopril), 10 MG PO QAM Metronidazole (Flagyl), 500 MG PO TID Omeprazole (Omeprazole), 40 MG PO QAM Ondasetron Odt (Zofran Odt), 4 MG SL Q6H Sertraline HCl (Sertraline HCl), 50 MG PO QAM Sertraline HCl (Sertraline HCl), 100 MG PO QAM Scheduled PRN Acetaminophen (Tylenol), 1,000 MG PO Q6H PRN for Pain Albuterol Hfa (Ventolin Hfa), 1-2 PUFFS INH Q4-6HRS PRN for SOB/Wheezing Loratadine (Claritin), 10 MG PO DAILY PRN for Allergy Symptoms Oxycodone Ir (Roxicodone Ir), 1-2 TAB PO Q4H PRN for Pain Promethazine Hcl (Phenergan), 25 MG PO Q6H PRN for Nausea Allergies Reviewed in chart Physical Exam Vital Signs Date Time Temp Pulse Resp B/P (MAP) Pulse Ox O2 Delivery O2 Flow Rate FiO2 11/06/16 16:25 69 18 125/73 100 Room Air 11/06/16 15:31 76 18 120/65 98 Room Air 11/06/16 12:53 36.9 85 18 144/80 95 Room Air Physical Exam CONSTITUTIONAL: No acute distress. Mildly dehydrated. Well appearing and well nourished. Alert and oriented X 4 with normal affect. HEENT: Normocephalic, atraumatic. Pupils equal, round and reactive to light, EOMI. TMs normal. Pharynx normal. Tacky mucous membranes. NECK: Supple, full active range of motion without discomfort. RESPIRATORY: Clear to auscultation bilaterally with no wheezing, crackles, rhonchi or stridor. Equal expansion bilaterally. CARDIOVASCULAR: Regular rate and rhythm with no murmurs, rubs or gallops. Normal peripheral perfusion. No edema. GASTROINTESTINAL: Mild epigastric tenderness to palpation, tenderness in the left lower quadrant as well. No rebound or guarding. Abdomen is soft and nondistended. Hyperactive bowel sounds throughout. MUSCULOSKELETAL: Full range of motion of all joints without discomfort. INTEGUMENTARY: No rash or other significant dermatologic conditions noted. NEUROLOGIC: Cranial nerves II-XII grossly intact. No focal neurologic deficits noted. Medical Decision & Procedures ER Provider Diagnostic Interpretation: ABDOMEN 2VIEW W/PA CHEST RTN CLINICAL HISTORY: eval free air, obstruction diverticulitis COMPARISON STUDY: 08/05/2015 FINDINGS: Lungs are considered clear. Minimal platelike atelectasis left base. Bowel pattern is nonobstructive. Minimal reactive nonobstructive small bowel ileus. Contrast within the colon from prior contrast study. IMPRESSION: 1. Minimal atelectasis left base. 2. Chest is otherwise negative. 3. Minimal nonobstructive ileus of the abdomen. 4. No evidence for free air or obstructive change. Laboratory Results 11/06/16 13:55 Red Blood Count 4.43, Mean Corpuscular Volume 91.4, Mean Corpuscular Hemoglobin 28.9, Mean Corpuscular Hemoglobin Concent 31.6, Mean Platelet Volume 10.3, Neutrophils (%) (Auto) 77.3, Lymphocytes (%) (Auto) 13.3, Monocytes (%) (Auto) 8.0, Eosinophils (%) (Auto) 0.7, Basophils (%) (Auto) 0.4, Neutrophils # (Auto) 7.95, Lymphocytes # (Auto) 1.37, Monocytes # (Auto) 0.82, Eosinophils # (Auto) 0.07, Basophils # (Auto) 0.04 11/06/16 13:55 Test 11/06/16 13:20 11/06/16 13:55 11/06/16 14:25 Urine Color DK YELLOW Urine Appearance CLEAR (CLEAR) Urine pH 7.5 (4.5-7.5) Urine Specific [place] 1.015 (1.000-1.030) Urine Protein NEG (NEG) Urine Glucose (UA) NEG (NEG) Urine Ketones NEG (NEG) Urine Occult Blood NEG (NEG) Urine Nitrite NEG (NEG) Urine Bilirubin NEG (NEG) Urine Urobilinogen NEG (NEG) Urine Leukocyte Esterase NEG (NEG) White Blood Count 10.28 K/uL (4.8-10.8) Red Blood Count 4.43 M/uL (4.2-5.4) Hemoglobin 12.8 g/dL (12.0-16.0) Hematocrit 40.5 % (37-47) Mean Corpuscular Volume 91.4 fL (80-100) Mean Corpuscular Hemoglobin 28.9 pg (25-34) Mean Corpuscular Hemoglobin Concent 31.6 g/dl (32-36) Platelet Count 280 K/uL (130-400) Mean Platelet Volume 10.3 fL (7.4-10.4) Neutrophils (%) (Auto) 77.3 % Lymphocytes (%) (Auto) 13.3 % Monocytes (%) (Auto) 8.0 % Eosinophils (%) (Auto) 0.7 % Basophils (%) (Auto) 0.4 % Neutrophils # (Auto) 7.95 K/uL (1.4-6.5) Lymphocytes # (Auto) 1.37 K/uL (1.2-3.4) Monocytes # (Auto) 0.82 K/uL (0.11-0.59) Eosinophils # (Auto) 0.07 K/uL (0-0.5) Basophils # (Auto) 0.04 K/uL (0-0.2) RDW Standard Deviation 46.6 fL (36.4-46.3) RDW Coefficient of Variation 13.8 % (11.5-14.5) Immature Granulocyte % (Auto) 0.3 % Immature Granulocyte # (Auto) 0.03 K/uL (0.00-0.02) Anion Gap 6.0 mmol/L (3-11) Est Creatinine Clear Calc Drug Dose 86.8 ml/min Estimated GFR () 115.9 Estimated GFR (Non- 100.0 BUN/Creatinine Ratio 5.1 (10-20) Calcium Level 9.3 mg/dl (8.5-10.1) Total Bilirubin 0.3 mg/dl (0.2-1) Direct Bilirubin < 0.1 mg/dl (0-0.2) Aspartate Amino Transf (AST/SGOT) 11 U/L (15-37) Alanine Aminotransferase (ALT/SGPT) 15 U/L (12-78) Alkaline Phosphatase 100 U/L (45-117) Total Protein 7.3 gm/dl (6.4-8.2) Albumin 3.5 gm/dl (3.4-5.0) Lipase 81 U/L (73-393) Urine Test NEG (NEG) Medications Administered Medications (Trade) Dose Ordered Sig/Art Route Start Time Stop Time Status Last Admin Dose Admin Sodium Chloride 1,000 ml @ 999 mls/hr Q1H1M STAT IV 11/06/16 13:39 11/06/16 14:39 DC 11/06/16 13:39 999 MLS/HR Ondansetron HCl (Zofran Inj) 4 mg NOW STAT IV 11/06/16 13:39 11/06/16 13:45 DC 11/06/16 14:03 4 MG Morphine Sulfate (MoRPHine SULFATE INJ) 4 mg NOW STAT IV 11/06/16 13:39 11/06/16 13:45 DC 11/06/16 14:03 4 MG Medical Decision CC: Patient presenting with complaint of vomiting Interpretation of Labs: Improved leukocytosis from 2 days ago, no anemia, no significant electrolyte abnormalities, normal renal function, normal liver enzymes and lipase[] Differential Diagnosis: Includes, but not limited to worsening diverticulitis, bowel obstruction, bowel perforation, ileus, poor tolerance of medications, dehydration, electrolyte disturbance Medication Reconciliation: I attest that I have personally reviewed the patient' s current medication list. Vital signs review: I reviewed the patient's vital signs and interpret them as follows: T: Afebrile; BP: Hypertensive; HR: Within normal limits; RR: Within normal limits; Pulse Ox: Within normal limits on room air. Summary: Patient was evaluated at bedside, history of physical exam performed. She is alert and in no acute distress, resting quietly in the stretcher. She is not actively vomiting or complaining of severe nausea. She has mild epigastric tenderness, and left lower quadrant tenderness she reports is improved since 2 days ago. I suspect her symptoms are most likely related to poor tolerance of narcotic medication and strong antibiotics on a fairly empty stomach. Given her recent diagnosis of diverticulitis, orders were placed at bedside for repeat labs, UA, IV fluids for hydration, IV meds for pain and nausea, and acute abdominal series x-ray to evaluate for evidence of free air or obstruction. Patient discussed with Dr. Urban, who agrees with my assessment and plan. Labs reviewed as above, no acute abnormalities and in fact appear to be improving from 2 days ago. X-ray imaging is negative for any free air or signs of obstruction, does note small nonobstructive ileus. Patient reassessed multiple times throughout ED stay, she remained well- appearing, stated her nausea was resolved and she has been able to tolerate PO fluids without difficulty. I discussed all results and plan for discharge home with the patient. I did encourage the patient to advance her diet to soft foods and bland foods, to help facilitate her tolerance of medications. I also instructed her to keep her follow-up plan with her PCP. The patient verbalized understanding and is comfortable with plan for discharge. Patient was discharged home in stable condition and ambulatory. Medication Reconcilliation Current Medication List: was personally reviewed by me Blood Pressure Screening Patient's blood pressure: Elevated blood pressure Blood pressure disposition: Elevated BP felt to be situational Impression Primary Impression: Nausea and vomiting Departure Information Dispostion Home / Self-Care Condition GOOD Prescriptions Ondasetron Odt (ZOFRAN ODT) 4 Mg Tab 4 MG SL Q6H for Nausea, #6 TAB Prov: GaylaFarhana CRNP 11/06/16 Referrals Salo Flores M.D. (PCP) Patient Instructions ED Diet Soft, ED Diverticulitis, ED Nausea Vomiting, [facility] Additional Instructions You have been treated in the Emergency Department your Vomiting and Abdominal Pain. Laboratory results and imaging studies have ruled out any emergent causes for your abdominal pain which would warrant admission or surgery. Continue your prescribed antibiotics and pain medication to treat your diverticulitis. Take medications with food. You may progress to a soft diet, and advance to normal food as tolerated. Avoid any high fiber foods, fatty foods, or any other foods that have caused you discomfort in the past. You have been prescribed Zofran to be used for any nausea or vomiting. Take as prescribed. Continue to drink plenty of fluids and stay well hydrated. You may also drink ensure to help supplement calories. Please follow-up with your PCP and GI doctor this week. Return to the emergency department if your symptoms worsen, including fevers or chills, severe worsening pain, worsening nausea/vomiting, vomiting up blood, blood in your stool or urine, or any other concerns. Problem Qualifiers Primary Impression: Nausea and vomiting Vomiting type: unspecified Vomiting Intractability: non-intractable Qualified Codes: R11.2 - Nausea with vomiting, unspecified
== END 2016-11-06 16:54 | disposition home or self-care (01) ==
LOC: C.EDB 12:39 → C.EDC 16:54
DX: R11.2 Nausea with vomiting, unspecified (principal); J45.909 Unspecified asthma, uncomplicated; J44.9 Chronic obstructive pulmonary disease, unspecified; K57.90 Diverticulosis of intestine, part unspecified, without perforation or abscess without bleeding; I10 Essential (primary) hypertension; Z83.3 Family history of diabetes mellitus; Z82.49 Family history of ischemic heart disease and other diseases of the circulatory system

== ENCOUNTER 2017-01-23 23:48 | Emergency (ER) | payer OTHER ==
[~2017-01-23] VITALS: Ht 154.9 cm; Wt 62.6 kg
[~2017-01-23 23:48] MED LIST changes: +ONDA4TAB10 SL
[2017-01-23 23:55] VITALS: TEMP 36.9; Ht 154.9 cm; Wt 62.6 kg
[2017-01-24] MEDS ORDERED: ONDANSETRON INJ 2 MG/ML 2 ML VIAL IV STA (00:14)
[2017-01-24] MEDS ORDERED: ACETAMINOPHEN IV 100 ML IV STA (00:14)
[2017-01-24] MEDS ORDERED: SODIUM CHLORIDE 0.9% 1000ML 1,000 ML IV STA (00:14)
--- NOTE | 2017-01-24 00:30 | EMERGENCY ROOM VISIT NOTE ---
History Report prepared by Kannan: González Monaco Under the Supervision of: Dr. Genaro Garcia M.D. First contact with patient: 00:12 Chief Complaint: ABDOMINAL PAIN Stated Complaint: LEFT SIDE PAIN Nursing Triage Summary: pt c/o lower left abd pain that began this AM. states she has a hx of divertulosis. pt alert and oriented x4. History of Present Illness The patient is a 36 year old female who presents to the Emergency Room with complaints of constant left sided abdominal pain starting this morning. She currently rates her discomfort as a 5/10 in severity. The patient notes that she has diverticulosis, and she was last on antibiotics a month ago. The patient reports that she has chronic abdominal pain that does not go away. She reports that she has been having harder stool recently and she has been having less bowel movements than normal. She states that she chronically has diarrhea, so this is different. The patient reports that she has been nauseous as well, and she has been unable to eat today. She states that she has been having chills as well as a cough for a few weeks. Additionally, she states that she started working two months ago, and it is more physically demanding. She denies any vaginal discharge, burning with urination, or fevers. The patient additionally notes that the pain is worsened with bowel movements. She states that she was supposed to be getting a colonoscopy, though she did not go, and she had one in the past and they found the diverticulosis and internal hemorrhoids. Source of History: patient Onset: this morning Position: abdomen (left sided) Symptom Intensity: 5/10 Timing: constant Modifying Factors (Worsening): other (bowel movements) Associated Symptoms: + chills, + cough, + nausea, No fevers, No urinary symptoms Review of Systems See HPI for pertinent positives and negatives. A total of ten systems were reviewed and were otherwise negative. Past Medical & Surgical Medical Problems: (1) Asthma (2) COPD (chronic obstructive pulmonary disease) (3) Diverticulosis Colon (W/O Ment Of Hemorrhage) (4) Hypertension (5) Migraine Family History Cancer Diabetes mellitus Heart disease Hypertension Lung disease Social History Smoking Status: Current Every Day Smoker Drug Use: none Marital Status: Housing Status: lives with family Occupation Status: unemployed Current/Historical Medications Scheduled Ciprofloxacin Hcl (Cipro), 500 MG PO BID Lisinopril (Lisinopril), 10 MG PO HS Metronidazole (Flagyl), 500 MG PO TID Omeprazole (Omeprazole), 40 MG PO QAM Ondasetron Odt (Zofran Odt), 4 MG SL Q6H Sertraline Hcl (Zoloft), 200 MG PO HS Scheduled PRN Albuterol Hfa (Ventolin Hfa), 1-2 PUFFS INH Q4-6HRS PRN for SOB/Wheezing Lorazepam (Ativan), 0.5 MG PO TID PRN for Anxiety Allergies Coded Allergies: Pseudoephedrine (Verified Allergy, Mild, 11/06/16) Triprolidine (Verified Allergy, Mild, 11/06/16) Amoxicillin (Verified Allergy, Unknown, UNKNOWN, 11/06/16) Azithromycin (Verified Allergy, Unknown, UNKNOWN, 11/06/16) Butorphanol (Verified Allergy, Unknown, 11/06/16) Clavulanic Acid (Verified Allergy, Unknown, UNKNOWN, 11/06/16) Tripelennamine (Verified Allergy, Unknown, 11/06/16) Doxycycline (Verified Adverse Reaction, Intermediate, nausea, 11/06/16) Uncoded Allergies: STEROIDS (Adverse Reaction, Unknown, flushing, 08/14/15) Physical Exam Vital Signs Date Time Temp Pulse Resp B/P (MAP) Pulse Ox O2 Delivery O2 Flow Rate FiO2 01/24/17 04:43 65 16 117/60 98 01/24/17 03:00 68 16 114/58 98 Room Air 01/24/17 01:52 78 16 98 Room Air 01/24/17 01:04 85 01/23/17 23:55 36.9 80 18 143/89 96 Room Air Physical Exam GENERAL: Awake, alert, in no acute distress HENT: Normocephalic, atraumatic. Oropharynx unremarkable. EYES: Normal conjunctiva. Sclera non-icteric. NECK: Supple. No nuchal rigidity. FROM. No JVD. RESPIRATORY: Clear to auscultation. CARDIAC: Regular rate, normal rhythm. Extremities warm and well perfused. Pulses equal. ABDOMEN: Mild left lower quadrant tenderness. No peritoneal signs. Soft, non- distended. No rebound or guarding. No masses. RECTAL: Deferred. MUSCULOSKELETAL: Chest examination reveals no tenderness. The back is symmetrical on inspection without obvious abnormality. There is no CVA tenderness to palpation. No joint edema. LOWER EXTREMITIES: Calves are equal size bilaterally and non-tender. No edema. No discoloration. NEURO: Normal sensorium. No sensory or motor deficits noted. SKIN: No rash or jaundice noted. Medical Decision & Procedures ER Provider Diagnostic Interpretation: Radiology results as stated below per my review and radiologist interpretation: US PELVIC/ENDOVAG: Findings assume a negative status. Please Confirm. 9mm endometrial complex. Uterus is otherwise unremarkable. Blood flow seen to both ovaries. 2.1cm left ovarian follicle is benign. Question thick-walled bowel seen in left lower quadrant. Consider correlation with CT as clinically indicated. Radiologist: Jorge Zapata MD Laboratory Results 01/24/17 00:35 Red Blood Count 4.44, Mean Corpuscular Volume 90.8, Mean Corpuscular Hemoglobin 29.7, Mean Corpuscular Hemoglobin Concent 32.8, Mean Platelet Volume 10.6, Neutrophils (%) (Auto) 63.1, Lymphocytes (%) (Auto) 25.6, Monocytes (%) (Auto) 8.7, Eosinophils (%) (Auto) 1.8, Basophils (%) (Auto) 0.6, Neutrophils # (Auto) 6.55, Lymphocytes # (Auto) 2.65, Monocytes # (Auto) 0.90, Eosinophils # (Auto) 0.19, Basophils # (Auto) 0.06 01/24/17 00:35 Test 01/24/17 00:35 01/24/17 00:48 01/24/17 01:25 White Blood Count 10.37 K/uL (4.8-10.8) Red Blood Count 4.44 M/uL (4.2-5.4) Hemoglobin 13.2 g/dL (12.0-16.0) Hematocrit 40.3 % (37-47) Mean Corpuscular Volume 90.8 fL (80-100) Mean Corpuscular Hemoglobin 29.7 pg (25-34) Mean Corpuscular Hemoglobin Concent 32.8 g/dl (32-36) Platelet Count 243 K/uL (130-400) Mean Platelet Volume 10.6 fL (7.4-10.4) Neutrophils (%) (Auto) 63.1 % Lymphocytes (%) (Auto) 25.6 % Monocytes (%) (Auto) 8.7 % Eosinophils (%) (Auto) 1.8 % Basophils (%) (Auto) 0.6 % Neutrophils # (Auto) 6.55 K/uL (1.4-6.5) Lymphocytes # (Auto) 2.65 K/uL (1.2-3.4) Monocytes # (Auto) 0.90 K/uL (0.11-0.59) Eosinophils # (Auto) 0.19 K/uL (0-0.5) Basophils # (Auto) 0.06 K/uL (0-0.2) RDW Standard Deviation 46.3 fL (36.4-46.3) RDW Coefficient of Variation 13.9 % (11.5-14.5) Immature Granulocyte % (Auto) 0.2 % Immature Granulocyte # (Auto) 0.02 K/uL (0.00-0.02) Erythrocyte Sedimentation Rate 12 mm/hr (0-21) Anion Gap 7.0 mmol/L (3-11) Est Creatinine Clear Calc Drug Dose 85.3 ml/min Estimated GFR () 114.2 Estimated GFR (Non- 98.5 BUN/Creatinine Ratio 13.9 (10-20) Calcium Level 9.3 mg/dl (8.5-10.1) Total Bilirubin 0.3 mg/dl (0.2-1) Direct Bilirubin < 0.1 mg/dl (0-0.2) Aspartate Amino Transf (AST/SGOT) 9 U/L (15-37) Alanine Aminotransferase (ALT/SGPT) 18 U/L (12-78) Alkaline Phosphatase 103 U/L (45-117) C-Reactive Protein 2.86 mg/dl (0-0.29) Total Protein 7.3 gm/dl (6.4-8.2) Albumin 3.7 gm/dl (3.4-5.0) Lipase 97 U/L (73-393) Lactic Acid Level 0.5 mmol/L (0.4-2.0) Urine Color YELLOW Urine Appearance CLEAR (CLEAR) Urine pH 6.0 (4.5-7.5) Urine Specific [place] 1.018 (1.000-1.030) Urine Protein NEG (NEG) Urine Glucose (UA) NEG (NEG) Urine Ketones NEG (NEG) Urine Occult Blood NEG (NEG) Urine Nitrite NEG (NEG) Urine Bilirubin NEG (NEG) Urine Urobilinogen NEG (NEG) Urine Leukocyte Esterase NEG (NEG) Urine Test NEG (NEG) Laboratory results reviewed by me Medications Administered Medications (Trade) Dose Ordered Sig/Art Route Start Time Stop Time Status Last Admin Dose Admin Sodium Chloride 1,000 ml @ 999 mls/hr Q1H1M STAT IV 01/24/17 00:14 01/24/17 01:14 DC 01/24/17 00:39 999 MLS/HR Ondansetron HCl (Zofran Inj) 4 mg NOW STAT IV 01/24/17 00:14 01/24/17 00:21 DC 01/24/17 00:40 4 MG Acetaminophen 100 ml @ 400 mls/hr NOW STAT IV 01/24/17 00:14 01/24/17 00:28 DC 01/24/17 00:40 400 MLS/HR Ciprofloxacin (Cipro Tab) 500 mg NOW STAT PO 01/24/17 04:27 01/24/17 04:29 DC 01/24/17 04:39 500 MG Metronidazole (Flagyl Tab) 500 mg NOW STAT PO 01/24/17 04:27 01/24/17 04:29 DC 01/24/17 04:39 500 MG Ondansetron HCl (ZOFRAN ODT 4MG Home Pack) 1 homepack UD ONCE PO 01/24/17 04:30 01/24/17 04:31 DC 01/24/17 04:39 1 HOMEPACK ED Course 0012: The patient was evaluated in room B2. A complete history and physical exam was performed. 0418: I reevaluated the patient. Discussed results and discharge instructions: she verbalized understanding and agreement. The patient is ready for discharge. Medical Decision I reviewed the patient's past medical history, medications, and the nursing notes as described above. Differential diagnoses include: diverticulitis, UTI, pyelonephritis, uretal stone, ovarian torsion, , ectopic , STI The patient is a 36-year-old woman with a past medical history of diverticulitis who presents to emergency department with left lower quadrant pain which she feels is similar to her prior diverticulitis episodes although she denies any diarrhea but does feel chills per history of present illness. The patient is in no acute distress, afebrile stable vital signs. She is mild left lower quadrant tenderness to palpation without any peritoneal signs. WBC within normal limits. LFTs unremarkable. Mildly elevated CRP however ESR within normal limits. Transvaginal ultrasound negative for emergent pelvic findings however incidentally comments on thickened bowel, which given the patient's prior episodes of diverticulitis and similar symptoms today, it is reasonable to treat the patient for uncomplicated diverticulitis, considering the patient prefers to avoid a CAT scan since she has had several in the past. Will treat with Cipro/Flagyl. Findings and plan for follow-up reviewed with patient. Patient agreeable and d/c'd per discharge instructions. Medication Reconcilliation Current Medication List: was personally reviewed by me Blood Pressure Screening Patient's blood pressure: Normal blood pressure Impression Primary Impression: Diverticulitis Scribe Attestation The scribe's documentation has been prepared under my direction and personally reviewed by me in its entirety. I confirm that the note above accurately reflects all work, treatment, procedures, and medical decision making performed by me. Departure Information Dispostion Home / Self-Care Prescriptions Ondasetron Odt (ZOFRAN ODT) 4 Mg Tab 4 MG SL Q6H for Nausea, #15 TAB Prov: Genaro Garcia M.D. 01/24/17 Metronidazole (Flagyl) 500 Mg Tab 500 MG PO TID, #30 TAB Prov: Genaro Garcia M.D. 01/24/17 Ciprofloxacin Hcl (CIPRO) 500 Mg Tab 500 MG PO BID, #20 TAB Prov: Genaro Garcia M.D. 01/24/17 Referrals Salo Flores M.D. (PCP) Forms Call Back Authorization, HOME CARE DOCUMENTATION FORM, IMPORTANT VISIT INFORMATION Patient Instructions ED Diverticulitis, [facility] Additional Instructions Please follow up with your primary care physician in the next 1-3 days for re- evaluation. You likely have a recurrence of your diverticulitis. Otherwise, your exam, ultrasound, and lab results did not show signs of an emergent condition at this time. Ciprofloxacin and Flagyl as directed. Zofran as needed for nausea. Return to the emergency department for worsening symptoms as described in the accompanying instructions.
[2017-01-24 00:59] LABS: BASO % 0.6 %; BASO ABS # 0.06 K/uL (0-0.2); COMPLETE YES; EOS % 1.8 %; HEMATOCRIT 40.3 % (37-47); IG% 0.2 %; LYMPH % 25.6 %; LYMPH ABS # 2.65 K/uL (1.2-3.4); MEAN CELL VOLUME 90.8 fL (80-100); MEAN CORPUSCULAR HEMOGLOBIN 29.7 pg (25-34); MEAN CORPUSCULAR HGB CONC 32.8 g/dl (32-36); MEAN PLATELET VOLUME 10.6 fL (7.4-10.4); MONO % 8.7 %; NEUT % 63.1 %; PLATELET COUNT 243 K/uL (130-400); RED BLOOD COUNT 4.44 M/uL (4.2-5.4); WHITE BLOOD COUNT 10.37 K/uL (4.8-10.8)
[2017-01-24 01:20] LABS: ALT/SGPT 18 U/L (12-78); BLOOD UREA NITROGEN 11 mg/dl (7-18); BUN/CREATININE RATIO 13.9 (10-20); C-REACTIVE PROTEIN 2.86 mg/dl (0-0.29); CALCIUM 9.3 mg/dl (8.5-10.1); CARBON DIOXIDE 25 mmol/L (21-32); CHLORIDE 103 mmol/L (98-107); CREATININE 0.78 mg/dl (0.60-1.20); GLUCOSE 86 mg/dl (70-99); POTASSIUM 3.7 mmol/L (3.5-5.1); SODIUM 135 mmol/L (136-145)
[2017-01-24 01:23] LABS: ALKALINE PHOSPHATASE 103 U/L (45-117); AST/SGOT 9 U/L (15-37)
[2017-01-24] MEDS ORDERED: LORA-741 PO (01:30)
[2017-01-24] MEDS ORDERED: SERT100T PO (01:30)
[2017-01-24 01:40] LABS: MANUAL MICROSCOPIC REQUIRED? NO; REVIEW REQ? NO; URINE APPEARANCE CLEAR (CLEAR); URINE BILIRUBIN NEG (NEG); URINE COLOR YELLOW; URINE NITRITE NEG (NEG); URINE SPECIFIC GRAVITY 1.018 (1.000-1.030); UROBILINOGEN NEG (NEG); ZZUR CULT IF INDIC CLEAN CATCH NO
[2017-01-24] MEDS ORDERED: METR-163 PO (04:26)
[2017-01-24] MEDS ORDERED: ONDA4TAB10 SL (04:26)
[2017-01-24] MEDS ORDERED: CIPR-255 PO (04:26)
[2017-01-24] MEDS ORDERED: METRONIDAZOLE 250 MG TAB PO STA (04:27)
[2017-01-24] MEDS ORDERED: CIPROFLOXACIN 500 MG TAB PO STA (04:27)
[2017-01-24] MEDS ORDERED: ONDANSETRON HOME PACK 4MG OD TAB PO ONE (04:30)
[2017-01-24 04:43] VITALS: BP 117/60; PULSE 65; O2SAT 98
--- NOTE | 2017-01-24 08:00 | DIAGNOSTIC IMAGING REPORT ---
PELVIC ULTRASOUND, TRANSABDOMINAL AND TRANSVAGINAL HISTORY: lower abd pain COMPARISON: None. FINDINGS: Uterus: Unremarkable. Endometrial stripe: 9 mm in thickness. Right ovary: Normal in size and demonstrates normal color flow. A few small follicles/cysts. Left ovary: Normal in size and demonstrates normal color flow. A 2.1 cm dominant cyst. Miscellaneous:Possible thick-walled bowel seen within the left lower quadrant. IMPRESSION: 1. The uterus and ovaries are within normal limits. 2. Possible thickened loop of bowel seen within the left lower quadrant. Dedicated CT can be performed for further evaluation. Electronically signed by: Fredi Staples M.D. 01/24/2017 7:58 AM Dictated Date/Time: 01/24/2017 7:56 AM
== END 2017-01-24 04:45 | disposition home or self-care (01) ==
LOC: C.EDB 23:49
DX: K57.92 Diverticulitis of intestine, part unspecified, without perforation or abscess without bleeding (principal); K57.30 Diverticulosis of large intestine without perforation or abscess without bleeding; J45.909 Unspecified asthma, uncomplicated; J44.9 Chronic obstructive pulmonary disease, unspecified; I10 Essential (primary) hypertension; Z83.3 Family history of diabetes mellitus; Z82.49 Family history of ischemic heart disease and other diseases of the circulatory system; Z83.6 Family history of other diseases of the respiratory system; F17.200 Nicotine dependence, unspecified, uncomplicated

== ENCOUNTER → 2017-03-29 | Outpatient (CLI) | payer OTHER ==
[~2017-03-29] MED LIST changes: -ACET-1256 PO; +LORA-741 PO; -LORA10TA51 PO; -OXYC1TAB3 PO; -PROM25TA9 PO; +SERT100T PO; -ZLF/100 PO; -ZLF/50 PO
--- NOTE | 2017-03-29 09:40 | DIAGNOSTIC IMAGING REPORT ---
SINGLE CONTRAST GASTROGRAFIN ENEMA CLINICAL HISTORY: Left lower quadrant pain. Evaluate for sigmoid stricture. COMPARISON STUDY: CT of the abdomen and pelvis November 04, 2016 and abdominal series November 06, 2016. FLUOROSCOPY TIME: 1.6 minutes. 11 fluoroscopic images were obtained. FINDINGS: Foreclosure Field Inspector KUB demonstrates a normal bowel gas pattern. There is a [id number] amount stool within the colon and rectum. A barium enema tip was then placed and a single contrast Gastrografin enema was performed. Contrast passed freely into the small bowel. No colonic stricture was noted. Note was made of sigmoid diverticulosis. No extraluminal contrast was noted. Mucosal detail was diminished given single contrast technique. IMPRESSION: 1. No colonic stricture identified. 2. Sigmoid diverticulosis. 3. Diminished mucosal detail given single contrast technique. Electronically signed by: Jaspreet Olvera M.D. 03/29/2017 9:38 AM Dictated Date/Time: 03/29/2017 9:35 AM
== END | disposition home or self-care (01) ==
LOC: C.RAD 08:41
PROVIDERS: ATTEND Colon & Rectal Surgery
DX: R10.9 Unspecified abdominal pain (principal); K57.30 Diverticulosis of large intestine without perforation or abscess without bleeding

== ENCOUNTER 2017-06-06 17:49 | Emergency (ER) | payer OTHER ==
[~2017-06-06] VITALS: Ht 156.2 cm; Wt 60.7 kg
[~2017-06-06 17:49] MED LIST changes: -LISI-461 PO; -OMEP20TA PO; -VNTHFA/IN INH
[2017-06-06 17:52] VITALS: TEMP 36.7; Ht 156.2 cm; Wt 60.7 kg
[2017-06-06] MEDS ORDERED: LISI-461 PO (18:16)
[2017-06-06] MEDS ORDERED: OMEP20TA PO (18:16)
[2017-06-06] MEDS ORDERED: VNTHFA/IN INH (18:16)
[2017-06-06] MEDS ORDERED: SODIUM CHLORIDE 0.9% 1000ML 1,000 ML IV STA (18:33)
[2017-06-06 18:40] LABS: BASO % 0.6 %; BASO ABS # 0.05 K/uL (0-0.2); EOS % 1.6 %; EOS ABS # 0.14 K/uL (0-0.5); HEMATOCRIT 38.2 % (37-47); HEMOGLOBIN 13.3 g/dL (12.0-16.0); IG# 0.02 K/uL (0.00-0.02); LYMPH % 33.3 %; LYMPH ABS # 2.85 K/uL (1.2-3.4); MEAN CELL VOLUME 89.9 fL (80-100); MEAN CORPUSCULAR HEMOGLOBIN 31.3 pg (25-34); MEAN CORPUSCULAR HGB CONC 34.8 g/dl (32-36); MONO % 9.7 %; MONO ABS # 0.83 K/uL (0.11-0.59); NEUT % 54.6 %; NEUT ABS # 4.68 K/uL (1.4-6.5); PLATELET COUNT 224 K/uL (130-400); RED CELL DISTRIBUTION WIDTH CV 14.2 % (11.5-14.5); RED CELL DISTRIBUTION WIDTH SD 47.2 fL (36.4-46.3); WHITE BLOOD COUNT 8.57 K/uL (4.8-10.8)
[2017-06-06] MEDS ORDERED: OPTIRAY 320 IV PRN (18:45)
[2017-06-06] MEDS ORDERED: ONDANSETRON INJ 2 MG/ML 2 ML VIAL IV STA (18:56)
[2017-06-06 18:59] LABS: BLOOD UREA NITROGEN 9 mg/dl (7-18); CREATININE 0.76 mg/dl (0.60-1.20); GLUCOSE 86 mg/dl (70-99)
[2017-06-06 19:00] LABS: ALBUMIN 3.6 gm/dl (3.4-5.0); ALT/SGPT 19 U/L (12-78); AST/SGOT 9 U/L (15-37); CALCIUM 8.9 mg/dl (8.5-10.1); CARBON DIOXIDE 26 mmol/L (21-32); LIPASE 111 U/L (73-393); POTASSIUM 3.9 mmol/L (3.5-5.1); SODIUM 134 mmol/L (136-145)
[2017-06-06 19:02] LABS: ALKALINE PHOSPHATASE 76 U/L (45-117)
--- NOTE | 2017-06-06 19:05 | EMERGENCY ROOM VISIT NOTE ---
History Report prepared by Kannan: Alison Boyle Under the Supervision of: Dr. Tracie Bradford M.D. First contact with patient: 18:24 Chief Complaint: ABDOMINAL PAIN Stated Complaint: LEFT SIDE PAIN, MIGRAINE History of Present Illness The patient is a 37 year old female who presents to the Emergency Room with complaints of constant abdominal pain starting five days ago. The patient states that it is on the left side and is sharp. She reports that it is radiating into her pelvic bone. She notes that she has been diagnosed with diverticulitis in the past. She states that she has seen GI and a colorectal surgeon twice. She states that she has not had a colonoscopy for a few years, but recently had a barium enema that was negative. She reports that they want her to have a CT done and have it sent to them. The patient complains of a headache, hot flashes, chills, fatigue, constipation, loss of appetite, and achiness. The patient denies diarrhea, vomiting, and the chance of . Source of History: patient Onset: 5 days ago Position: abdomen Quality: sharp Timing: constant Associated Symptoms: + chills, + headache, + fatigue, No vomiting, No diarrhea Note: The patient complains of hot flashes, constipation, loss of appetite, and achiness. Review of Systems See HPI for pertinent positives & negatives. A total of 10 systems reviewed and were otherwise negative. 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 (6) Hypertension (7) Migraine Family History Cancer Diabetes mellitus Heart disease Hypertension Lung disease Social History Smoking Status: Current Every Day Smoker Drug Use: none Marital Status: Housing Status: lives with family Occupation Status: unemployed Current/Historical Medications Scheduled Acetaminophen (Tylenol), 1,000 MG PO PRN UD Buspirone HCl (Buspirone HCl), 10 MG PO BID Lisinopril (Lisinopril), 10 MG PO HS Lorazepam (Lorazepam), 1 MG PO TID Omeprazole (Omeprazole), 40 MG PO QAM Ondasetron Odt (Zofran Odt), 4 MG SL Q6H Sertraline Hcl (Zoloft), 200 MG PO HS Scheduled PRN Albuterol Hfa (Ventolin Hfa), 1-2 PUFFS INH Q4-6HRS PRN for SOB/Wheezing Senna/Docusate Sod (Senokot S), 1 TAB PO DAILY PRN for Constipation Trazodone Hcl (Desyrel), 50 MG PO HS PRN for Sleep Allergies Coded Allergies: Pseudoephedrine (Verified Allergy, Mild, 11/06/16) Triprolidine (Verified Allergy, Mild, 11/06/16) Amoxicillin (Verified Allergy, Unknown, UNKNOWN, 11/06/16) Azithromycin (Verified Allergy, Unknown, UNKNOWN, 11/06/16) Butorphanol (Verified Allergy, Unknown, 11/06/16) Clavulanic Acid (Verified Allergy, Unknown, UNKNOWN, 11/06/16) Tripelennamine (Verified Allergy, Unknown, 11/06/16) Doxycycline (Verified Adverse Reaction, Intermediate, nausea, 11/06/16) Uncoded Allergies: STEROIDS (Adverse Reaction, Unknown, flushing, 08/14/15) Physical Exam Vital Signs Date Time Temp Pulse Resp B/P (MAP) Pulse Ox O2 Delivery O2 Flow Rate FiO2 06/06/17 23:21 84 16 136/86 99 06/06/17 22:03 76 16 134/55 95 Room Air 06/06/17 19:49 77 06/06/17 19:18 61 16 124/62 98 Room Air 06/06/17 17:52 36.7 80 17 124/77 98 Room Air Physical Exam Vital signs reviewed. General: Well-appearing, in no significant distress. HEENT: No scleral icterus, PERRLA, neck supple. Atraumatic. Cardiovascular: Regular rate and rhythm, no extra sounds. Pulmonary: Clear to auscultation bilaterally, normal work of breathing. Abdomen: Soft, minimal RLQ tenderness, nondistended, positive bowel sounds. Musculoskeletal: Atraumatic, no peripheral edema. Neurologic: Patient awake alert and oriented x 3 Skin: Warm, dry, no rash Medical Decision & Procedures ER Provider Diagnostic Interpretation: Radiology results as stated below per my review and radiologist interpretation: ABDOMEN AND PELVIS CT WITH IV AND ORAL CONTRAST CT DOSE: 255.03 mGy.cm HISTORY: Acute left lower quadrant abdominal pain with history of colonic diverticulosis LLQ abd pain, h/o diverticulosis TECHNIQUE: Multiaxial CT images of the abdomen and pelvis were performed following the use of intravenous and oral contrast. A dose lowering technique was utilized adhering to the principles of ALARA. COMPARISON STUDY: CT abdomen and pelvis 11/04/2016. FINDINGS: Lung bases are generally clear. No pneumatosis or pneumoperitoneum identified. Imaged inferior cardiac chambers are unremarkable. Gallbladder, liver, spleen, pancreas and adrenal glands are within normal limits. Low attenuating lesions of the kidneys bilaterally measuring up to 1.6 cm on the right suggest renal cysts. No renal calculi or hydronephrosis. Bladder and uterus are unremarkable. Follicular changes are seen within the bilateral ovaries. Mild atheromatous plaquing of the abdominal aorta without aneurysm. No bulky adenopathy. No bowel obstruction. Moderate to extensive colonic diverticulosis with moderate wall thickening throughout the sigmoid colon suggests chronic mural hypertrophy without inflammatory changes to suggest acute inflammation. Mildly prominent lymph nodes of the sigmoid mesocolon measure up to 5 mm in short axis. Appendix appears surgically absent. Soft tissues are unremarkable. Bones appear intact. Remote appearing bilateral pars defects at L5. IMPRESSION: 1. No acute intra-abdominal or intrapelvic abnormality identified. 2. Moderate to extensive colonic diverticulosis without inflammatory changes to suggest acute diverticulitis. Moderate wall thickening of the sigmoid colon suggests chronic mural hypertrophy. 3. Multiple mildly prominent lymph nodes of the sigmoid mesocolon are nonspecific and may be reactive. 4. Remote appearing bilateral pars defects at L5. Electronically signed by: Miguelito Estrella M.D. 06/06/2017 10:13 PM Dictated Date/Time: 06/06/2017 10:07 PM Laboratory Results 06/06/17 18:30 Red Blood Count 4.25, Mean Corpuscular Volume 89.9, Mean Corpuscular Hemoglobin 31.3, Mean Corpuscular Hemoglobin Concent 34.8, Mean Platelet Volume 10.0, Neutrophils (%) (Auto) 54.6, Lymphocytes (%) (Auto) 33.3, Monocytes (%) (Auto) 9.7, Eosinophils (%) (Auto) 1.6, Basophils (%) (Auto) 0.6, Neutrophils # (Auto) 4.68, Lymphocytes # (Auto) 2.85, Monocytes # (Auto) 0.83, Eosinophils # (Auto) 0.14, Basophils # (Auto) 0.05 06/06/17 18:30 Test 06/06/17 18:30 White Blood Count 8.57 K/uL (4.8-10.8) Red Blood Count 4.25 M/uL (4.2-5.4) Hemoglobin 13.3 g/dL (12.0-16.0) Hematocrit 38.2 % (37-47) Mean Corpuscular Volume 89.9 fL (80-100) Mean Corpuscular Hemoglobin 31.3 pg (25-34) Mean Corpuscular Hemoglobin Concent 34.8 g/dl (32-36) Platelet Count 224 K/uL (130-400) Mean Platelet Volume 10.0 fL (7.4-10.4) Neutrophils (%) (Auto) 54.6 % Lymphocytes (%) (Auto) 33.3 % Monocytes (%) (Auto) 9.7 % Eosinophils (%) (Auto) 1.6 % Basophils (%) (Auto) 0.6 % Neutrophils # (Auto) 4.68 K/uL (1.4-6.5) Lymphocytes # (Auto) 2.85 K/uL (1.2-3.4) Monocytes # (Auto) 0.83 K/uL (0.11-0.59) Eosinophils # (Auto) 0.14 K/uL (0-0.5) Basophils # (Auto) 0.05 K/uL (0-0.2) RDW Standard Deviation 47.2 fL (36.4-46.3) RDW Coefficient of Variation 14.2 % (11.5-14.5) Immature Granulocyte % (Auto) 0.2 % Immature Granulocyte # (Auto) 0.02 K/uL (0.00-0.02) Urine Color DK YELLOW Urine Appearance CLEAR (CLEAR) Urine pH 5.5 (4.5-7.5) Urine Specific Odum 1.025 (1.000-1.030) Urine Protein NEG (NEG) Urine Glucose (UA) NEG (NEG) Urine Ketones NEG (NEG) Urine Occult Blood NEG (NEG) Urine Nitrite NEG (NEG) Urine Bilirubin NEG (NEG) Urine Urobilinogen NEG (NEG) Urine Leukocyte Esterase NEG (NEG) Urine Test NEG (NEG) Anion Gap 5.0 mmol/L (3-11) Est Creatinine Clear Calc Drug Dose 86.7 ml/min Estimated GFR () 117.0 Estimated GFR (Non- 100.9 BUN/Creatinine Ratio 12.0 (10-20) Calcium Level 8.9 mg/dl (8.5-10.1) Total Bilirubin 0.2 mg/dl (0.2-1) Direct Bilirubin < 0.1 mg/dl (0-0.2) Aspartate Amino Transf (AST/SGOT) 9 U/L (15-37) Alanine Aminotransferase (ALT/SGPT) 19 U/L (12-78) Alkaline Phosphatase 76 U/L (45-117) Total Protein 7.0 gm/dl (6.4-8.2) Albumin 3.6 gm/dl (3.4-5.0) Lipase 111 U/L (73-393) Laboratory results per my review. Medications Administered Medications (Trade) Dose Ordered Sig/Art Route Start Time Stop Time Status Last Admin Dose Admin Sodium Chloride 1,000 ml @ 150 mls/hr Q6H40M STAT IV 06/06/17 18:33 06/07/17 00:10 DC 06/06/17 19:17 150 MLS/HR Ondansetron HCl (Zofran Inj) 4 mg NOW STAT IV 06/06/17 18:56 06/06/17 18:57 DC 06/06/17 19:17 4 MG ED Course 1829: Past medical records reviewed. The patient was evaluated in room A2. A complete history and physical examination was performed. 1832: Ordered NSS 1000 ml @ 150 mls/hr IV. 1855: Ordered Zofran Inj 4 mg IV. 2102: I reevaluated the patient and she is currently complaining of a headache. 2104: Ordered Tylenol Tab 650 mg PO. 3: Upon reevaluation, the patient appeared to have improvement of her symptoms. I discussed findings with her. She verbalized agreement of the treatment plan. The patient was discharged home. Medical Decision Differential diagnosis: Etiologies such as appendicitis, diverticulitis, PUD, biliary pathology, UTI, pancreatitis, obstruction, mesenteric ischemia, aortic pathology, infections, inflammatory bowel disease, renal colic, as well as others were entertained. This patient was evaluated and appeared to be in no significant distress. IV access was obtained and laboratory work was drawn. Patient was placed on monitoring engineer and found to be in normal sinus rhythm. She was hydrated with normal saline solution. Patient was given IV Zofran for nausea. She requested pain medication and was given an order for Tylenol. The patient stated she had taken Tylenol at home without any significant relief. In the meantime the patient had gone to CT scan which is significant for diverticulosis. There is no evidence of acute diverticulitis. Given her normal laboratory work, afebrile state and CT findings, I do not feel the patient warrants additional antibiotics. She states her colorectal surgeon feels that she has been treated with antibiotics frequently unnecessarily. Patient was advised to monitor for signs of increased pain, fever, blood in the stools and seek medical attention from her PCP or specialists. Patient will return to the ER for worsening of symptoms or any medical concerns. [place] Drug Monitoring Program Search Results: patient reviewed within database, see additional documentation (muliple benzo Rx) Medication Reconcilliation Current Medication List: was personally reviewed by me Blood Pressure Screening Patient's blood pressure: Normal blood pressure Blood pressure disposition: Did not require urgent referral Impression Primary Impression: Diverticulosis Additional Impression: LLQ abdominal pain Scribe Attestation The scribe's documentation has been prepared under my direction and personally reviewed by me in its entirety. I confirm that the note above accurately reflects all work, treatment, procedures, and medical decision making performed by me. Departure Information Dispostion Home / Self-Care Referrals Salo Flores M.D. (PCP) Forms Call Back Authorization, HOME CARE DOCUMENTATION FORM, IMPORTANT VISIT INFORMATION Patient Instructions My [facility] Additional Instructions Diagnosis: Left lower quadrant abdominal pain, diverticulosis Please take your abdominal CT scan to your colorectal surgeon. Follow-up with your primary care physician or colorectal surgeon within the next 1-2 weeks. Return to the emergency department for increased pain, fevers, blood in the stools or any medical concerns. Problem Qualifiers
[2017-06-06] MEDS ORDERED: ACETAMINOPHEN 325 MG TAB PO STA (21:05)
[2017-06-06] MEDS ORDERED: BSP/10 PO (21:49)
[2017-06-06] MEDS ORDERED: TYLOTC500 PO (21:49)
[2017-06-06] MEDS ORDERED: TRAZ-120 PO (21:49)
[2017-06-06] MEDS ORDERED: ATV1 PO (21:49)
[2017-06-06] MEDS ORDERED: SENN-65 PO (21:49)
--- NOTE | 2017-06-06 22:15 | DIAGNOSTIC IMAGING REPORT ---
ABDOMEN AND PELVIS CT WITH IV AND ORAL CONTRAST CT DOSE: 255.03 mGy.cm HISTORY: Acute left lower quadrant abdominal pain with history of colonic diverticulosis LLQ abd pain, h/o diverticulosis TECHNIQUE: Multiaxial CT images of the abdomen and pelvis were performed following the use of intravenous and oral contrast. A dose lowering technique was utilized adhering to the principles of ALARA. COMPARISON STUDY: CT abdomen and pelvis 11/04/2016. FINDINGS: Lung bases are generally clear. No pneumatosis or pneumoperitoneum identified. Imaged inferior cardiac chambers are unremarkable. Gallbladder, liver, spleen, pancreas and adrenal glands are within normal limits. Low attenuating lesions of the kidneys bilaterally measuring up to 1.6 cm on the right suggest renal cysts. No renal calculi or hydronephrosis. Bladder and uterus are unremarkable. Follicular changes are seen within the bilateral ovaries. Mild atheromatous plaquing of the abdominal aorta without aneurysm. No bulky adenopathy. No bowel obstruction. Moderate to extensive colonic diverticulosis with moderate wall thickening throughout the sigmoid colon suggests chronic mural hypertrophy without inflammatory changes to suggest acute inflammation. Mildly prominent lymph nodes of the sigmoid mesocolon measure up to 5 mm in short axis. Appendix appears surgically absent. Soft tissues are unremarkable. Bones appear intact. Remote appearing bilateral pars defects at L5. IMPRESSION: 1. No acute intra-abdominal or intrapelvic abnormality identified. 2. Moderate to extensive colonic diverticulosis without inflammatory changes to suggest acute diverticulitis. Moderate wall thickening of the sigmoid colon suggests chronic mural hypertrophy. 3. Multiple mildly prominent lymph nodes of the sigmoid mesocolon are nonspecific and may be reactive. 4. Remote appearing bilateral pars defects at L5. Electronically signed by: Miguelito Estrella M.D. 06/06/2017 10:13 PM Dictated Date/Time: 06/06/2017 10:07 PM
[2017-06-06 23:21] VITALS: BP 136/86; PULSE 84; O2SAT 99
== END 2017-06-06 23:22 | disposition home or self-care (01) ==
LOC: C.EDB 17:51 → C.EDA 23:22
DX: K57.30 Diverticulosis of large intestine without perforation or abscess without bleeding (principal); R10.32 Left lower quadrant pain; J45.909 Unspecified asthma, uncomplicated; J44.9 Chronic obstructive pulmonary disease, unspecified; I10 Essential (primary) hypertension; R87.810 Cervical high risk human papillomavirus (HPV) DNA test positive; F17.200 Nicotine dependence, unspecified, uncomplicated; Z79.899 Other long term (current) drug therapy; Z88.8 Allergy status to other drugs, medicaments and biological substances; Z88.5 Allergy status to narcotic agent; Z88.0 Allergy status to penicillin; Z88.1 Allergy status to other antibiotic agents

== ENCOUNTER → 2017-07-04 | Outpatient (CLI) | payer OTHER ==
[~2017-07-04] MED LIST changes: +ATV1 PO; +BSP/10 PO; -CIPR-255 PO; +LISI-461 PO; -LORA-741 PO; -METR-163 PO; +OMEP20TA PO; +SENN-65 PO; +TRAZ-120 PO; +TYLOTC500 PO; +VNTHFA/IN INH
[2017-07-04 12:33] LABS: BASO % 0.8 %; BASO ABS # 0.06 K/uL (0-0.2); EOS % 2.6 %; EOS ABS # 0.19 K/uL (0-0.5); HEMATOCRIT 39.6 % (37-47); HEMOGLOBIN 13.5 g/dL (12.0-16.0); IG# 0.02 K/uL (0.00-0.02); LYMPH % 27.7 %; LYMPH ABS # 2.06 K/uL (1.2-3.4); MEAN CELL VOLUME 90.8 fL (80-100); MEAN CORPUSCULAR HGB CONC 34.1 g/dl (32-36); MEAN PLATELET VOLUME 11.3 fL (7.4-10.4); MONO % 8.3 %; MONO ABS # 0.62 K/uL (0.11-0.59); NEUT % 60.3 %; PLATELET COUNT 219 K/uL (130-400); RED CELL DISTRIBUTION WIDTH CV 13.6 % (11.5-14.5); RED CELL DISTRIBUTION WIDTH SD 45.2 fL (36.4-46.3); WHITE BLOOD COUNT 7.45 K/uL (4.8-10.8)
[2017-07-04 13:09] LABS: ALBUMIN 3.8 gm/dl (3.4-5.0); ALKALINE PHOSPHATASE 92 U/L (45-117); ALT/SGPT 16 U/L (12-78); AST/SGOT 8 U/L (15-37); BLOOD UREA NITROGEN 9 mg/dl (7-18); CALCIUM 8.8 mg/dl (8.5-10.1); CARBON DIOXIDE 28 mmol/L (21-32); CREATININE 0.88 mg/dl (0.60-1.20); GLUCOSE 90 mg/dl (70-99); POTASSIUM 3.9 mmol/L (3.5-5.1); SODIUM 137 mmol/L (136-145); TOTAL PROTEIN 7.5 gm/dl (6.4-8.2)
[2017-07-04 13:22] LABS: CHOLESTEROL 209 mg/dl (0-200); LDL CHOLESTEROL CALCULATED 135 mg/dl
== END | disposition home or self-care (01) ==
LOC: C.LABBFT 08:34
PROVIDERS: ATTEND Internal Medicine
DX: I10 Essential (primary) hypertension (principal); E53.8 Deficiency of other specified B group vitamins; D72.829 Elevated white blood cell count, unspecified

== ENCOUNTER 2024-08-09 08:58 | Observation (INO) ==
--- NOTE | 2024-08-09 09:38 | Emergency Department Note ---
History of Present Illness General Chief complaint: Abdominal Pain Stated complaint: ABD PAIN Time Seen by Provider: 08/09/24 09:14 History of Present Illness Maximum Pain Intensity: 7 This is a 44-year-old female that presents to the emergency department via private vehicle with complaints of "left-sided abdominal pain, nausea, vomiting". The patient has history of diverticulitis, recurrent in nature noting episodes in 2014, 2015 and 2016. She notes that she did follow-up with colorectal surgery and ultimately thus far no surgery. She notes that this past Monday she returned with left upper quadrant abdominal pain, similar to previous episodes of diverticulitis. She notes she was seen here in the ED x 2, had 2 CAT scans and diagnosed with diverticulitis. She was provided ciprofloxacin and metronidazole. She notes she has not taken that at home as of yet. She notes continued nausea and also some intermittent vomiting. Per review of the EMR she did receive IV doses of these medicines on recent visit. She notes ongoing left lower quadrant abdominal pain. She notes chills. Home Medications Medication Instructions Recorded Confirmed Type cyanocobalamin (vitamin B-12) 1,000 mcg IM MONTHLY #30 mL 04/15/20 08/09/24 Rx 1,000 mcg/mL injection solution acetaminophen 500 mg tablet 500 mg PO QID PRN Pain 12/21/22 08/09/24 History Medical Marijuana 1 dose inhalation DIRECTED PRN 09/13/23 08/09/24 History NEEDED PER PT rizatriptan 10 mg tablet (Maxalt) See Rx Instructions PO .COMPLEX 09/13/23 08/09/24 History PRN Migraine Headache lisinopril 10 mg tablet 10 mg PO DAILY #90 tabs 02/15/24 08/09/24 Rx albuterol sulfate 90 mcg/actuation 1 - 2 inh inhalation Q4H PRN 04/16/24 08/09/24 Rx aerosol inhaler Shortness Of Breath Or Wheezing #8.5 grams pantoprazole 40 mg tablet,delayed 40 mg PO QAM #90 tabs 06/15/24 08/09/24 Rx release sertraline 100 mg tablet 200 mg (2 x 100 mg) PO HS #180 tabs 07/26/24 08/09/24 Rx cholecalciferol (vitamin D3) 1,250 50,000 unit PO WK #14 caps 08/05/24 08/09/24 Rx mcg (50,000 unit) capsule promethazine 25 mg tablet 25 mg PO Q6H PRN nausea and 08/08/24 08/09/24 Rx vomiting #20 tabs lorazepam 1 mg tablet 1 mg PO TID anxiety 08/09/24 08/09/24 History Allergies Allergy/AdvReac Type Severity Reaction Status Date / Time latex Allergy Intermediate rash, when Verified 08/09/24 09:56 wears gloves pseudoephedrine Allergy Intermediate Hives Verified 08/09/24 09:56 tripelennamine Allergy Intermediate Hives Verified 08/09/24 09:56 triprolidine Allergy Intermediate Hives Verified 08/09/24 09:56 adhesive Allergy Mild Redness of Verified 08/09/24 09:56 Skin amoxicillin AdvReac Severe severe Verified 08/09/24 09:56 diarrhea azithromycin AdvReac Severe severe Verified 08/09/24 09:56 [From Zithromax Z-Cesario] stomach cramps clavulanic acid AdvReac Severe severe Verified 08/09/24 09:56 diarrhea butorphanol [From Stadol] AdvReac Intermediate loopy Verified 08/09/24 09:56 cortisone AdvReac Intermediate Flushing Verified 08/09/24 09:56 doxycycline AdvReac Intermediate nausea/vomi Verified 08/09/24 09:56 ting prednisone AdvReac Intermediate Anxiety Verified 08/09/24 09:56 STEROIDS AdvReac Intermediate flushing Uncoded 08/09/24 09:56 Past Med/Surg History Problem List (Updated 08/09/24 @ 23:56 by Victoriano Avila PA-C) SIRS (systemic inflammatory response syndrome) Nausea & vomiting (Acute) Left ovarian cyst (Acute) Diverticulitis (Acute) LLQ abdominal pain (Acute) Acute diverticulitis (Acute) H/O endoscopy Hives Thrush Scalp pruritus Ingrown hair Coccygeal pain, chronic Bug bites Iron deficiency Weight loss Smoking greater than 20 pack years Musculoskeletal pain Contraception management Screening for STD (sexually transmitted disease) Sinusitis chronic, frontal Encounter for pre-operative examination Anxiety (Acute) Nonspecific abdominal pain (Acute) Pain, dental (Acute) Left sided abdominal pain (Acute) Headache (Acute) Asthma (Chronic) H/O 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 COPD (chronic obstructive pulmonary disease) (Chronic) Migraine (Chronic) Hypertension (Chronic) Abdominal pain (Acute) Diverticulitis of sigmoid colon (Acute) GERD (gastroesophageal reflux disease) B12 deficiency Irritable bowel syndrome (Acute) Rectocele (Acute) Medical History History of cardiac murmur as a child COPD (chronic obstructive pulmonary disease) History of anesthesia reaction difficulty waking Fatty liver disease, nonalcoholic Hiatal hernia Diverticular disease Depression Migraine Anxiety Hypertension Asthma inhaler prn (few times per month) Surgical History History of loop electrical excision procedure (LEEP) History of colposcopy History of appendectomy History of colonoscopy History of tooth extraction all teeth removed Family History Sister Family history of reaction to anesthesia vomiting Grandmother (Maternal) Family history of diabetes mellitus Grandmother (Paternal) Family history of diabetes mellitus Osteoporosis Grandfather (Paternal) Family history of diabetes mellitus Father Heart disease Hypertension Grandfather Stroke Aunt Breast cancer Colorectal cancer Mother Heart disease Lung cancer Uncle Lung cancer maternal Social History Smoking Status: Current every day smoker Tobacco Type: Cigarettes and E-cigarettes / Vaping Age Started Using Tobacco: 14; packs per day: 1.5; Cigarettes Per Day: 30 per day - advised; Second Hand Exposure: Yes; Do You Dip or Chew Tobacco: No; Hx Alcohol Use: No Hx Substance Use: Yes (Medical Marijuana) Last Used Substance Other:: 12/20/22 Preferred Language: Swedish Communication Ability: Effective Globe Changer Required: No Beliefs That Will Affect Care: None marital status: Current Living Situation: Alone current occupational status: employed Feels Safe at Home: Yes Safety Concerns: Feels Safe At This Time Childhood Exposure to Second-Hand Smoke: Yes Dental Care, Regularly: No Physical Activity Frequency: Does not Exercise Seatbelt Use: never Sunscreen Use: Yes Assistive Devices: Glasses Review of Systems A total of 10 systems reviewed and were otherwise negative Physical Exam Vital Signs Vital Signs - 24 hr 08/09/24 09:09 08/09/24 09:21 08/09/24 09:23 Temperature 37.2 C Temperature Source Oral Pulse Rate 95 H 90 Pulse Rate from SpO2 Sensor Respiratory Rate 16 20 Respiratory Effort / Characteristics Non-Labored Spontaneous Respiratory Depth Normal Respiratory Pattern Regular Blood Pressure 167/81 H 132/97 Blood Pressure Mean 109 100 Blood Pressure Position Sitting Pulse Oximetry 97 Oxygen Delivery Method Room Air Sepsis Recent Fever Within 48 Hours No Sepsis New/Unexplained Change in Mental Status No Sepsis Action Taken by Nursing No Action Required 08/09/24 09:23 08/09/24 09:23 08/09/24 09:24 Temperature Temperature Source Pulse Rate Pulse Rate from SpO2 Sensor Respiratory Rate 15 Respiratory Effort / Characteristics Non-Labored Spontaneous Respiratory Depth Normal Respiratory Pattern Blood Pressure 132/97 132/97 Blood Pressure Mean 100 100 Blood Pressure Position Pulse Oximetry Oxygen Delivery Method Sepsis Recent Fever Within 48 Hours Sepsis New/Unexplained Change in Mental Status Sepsis Action Taken by Nursing 08/09/24 09:25 08/09/24 09:27 08/09/24 09:30 Temperature Temperature Source Pulse Rate 90 90 Pulse Rate from SpO2 Sensor 92 H Respiratory Rate 23 Respiratory Effort / Characteristics Respiratory Depth Respiratory Pattern Blood Pressure 148/82 H Blood Pressure Mean 99 Blood Pressure Position Pulse Oximetry 96 Oxygen Delivery Method Sepsis Recent Fever Within 48 Hours Sepsis New/Unexplained Change in Mental Status Sepsis Action Taken by Nursing 08/09/24 09:30 08/09/24 09:30 08/09/24 09:33 Temperature Temperature Source Pulse Rate 85 Pulse Rate from SpO2 Sensor 85 Respiratory Rate 18 Respiratory Effort / Characteristics Respiratory Depth Respiratory Pattern Blood Pressure 148/82 H 148/82 H Blood Pressure Mean 99 99 Blood Pressure Position Pulse Oximetry 97 Oxygen Delivery Method Sepsis Recent Fever Within 48 Hours Sepsis New/Unexplained Change in Mental Status Sepsis Action Taken by Nursing 08/09/24 09:54 08/09/24 10:00 08/09/24 10:00 Temperature Temperature Source Pulse Rate 94 H 94 H Pulse Rate from SpO2 Sensor 93 H 94 H Respiratory Rate 19 18 Respiratory Effort / Characteristics Respiratory Depth Respiratory Pattern Blood Pressure 124/85 Blood Pressure Mean 103 Blood Pressure Position Pulse Oximetry 97 96 Oxygen Delivery Method Sepsis Recent Fever Within 48 Hours Sepsis New/Unexplained Change in Mental Status Sepsis Action Taken by Nursing 08/09/24 10:02 Temperature Temperature Source Pulse Rate Pulse Rate from SpO2 Sensor Respiratory Rate Respiratory Effort / Characteristics Respiratory Depth Respiratory Pattern Blood Pressure Blood Pressure Mean Blood Pressure Position Pulse Oximetry Oxygen Delivery Method Room Air Sepsis Recent Fever Within 48 Hours Sepsis New/Unexplained Change in Mental Status Sepsis Action Taken by Nursing VITAL SIGNS - Vital signs and nursing notes were reviewed. Stable and afebrile. GENERAL - 44-year-old female appearing her stated age who is in no acute distress. Communicates well with provider and answers questions appropriately. SKIN - Without rashes. No meningeal or petechial rash. HEAD - NC/AT. EYES - PERRL with EOMI bilaterally. Sclera anicteric. EARS - No deformities of external structures noted on gross examination bilaterally. External auditory canals without discharge or otorrhea. Tympanic membranes pearly salcedo without retraction or bulging. No fluid or purulent material visualized behind the TM. Handle of malleus, umbo, cone of light, pars tensa/flaccid all easily visualized. NOSE - Midline and without cyanosis. No epistaxis or purulent drainage noted. Septum midline without deviation or septal hematoma noted. MOUTH/OROPHARYNX - Without perioral cyanosis. Buccal mucosa pink and moist and without leukoplakia. Tongue midline with equal elevation of palate bilaterally. No tonsillar hypertrophy, erythema, or exudates noted. Patient is edentulous. NECK - Neck with FROM. Supple to palpation. No lymphadenopathy noted. No nuchal rigidity. LUNGS - Chest wall symmetric without accessory muscle use, intercostals retractions, or central cyanosis. Normal vesicular breath sounds CTA B/L. No wheezes, rales, or rhonchi appreciated. CARDIAC - RRR ABDOMEN - Abdominal contour normal without pulsations or visible masses. BS normoactive all four quadrants. No tenderness, palpable masses, hepatosplenomegaly, or ascites noted. EXTREMITIES - No clubbing or peripheral cyanosis. +5/5 strength noted in UE/LE bilaterally. NEUROLOGIC - Cranial nerves II through XII grossly intact. PSYCH -alert, oriented and pleasant on exam. Course Administered Medications Lactated Ringer's (Lr) 1,000 mls @ 125 mls/hr IV .Q8H SEEMA Stop: 08/11/24 11:14 Last Admin: 08/09/24 21:01 Dose: 125 mls/hr Documented By: Infusion: 08/09/24 19:42 Dose: Infused Documented By: Admin: 08/09/24 11:42 Dose: 125 mls/hr Documented By: ALDO Metronidazole (Flagyl) 500 mg in 100 mls @ 100 mls/hr IV Q8H SEEMA; Protocol Stop: 08/19/24 18:59 Last Infusion: 08/09/24 21:56 Dose: Infused Documented By: Admin: 08/09/24 20:56 Dose: 100 mls/hr Documented By: EVER Pantoprazole Sodium (Protonix) 40 mg in 10 mls @ 5 mls/min IV BID [facility] Stop: 09/08/24 21:29 Last Admin: 08/09/24 21:58 Dose: 5 mls/min Documented By: EVER Lorazepam (Lorazepam 1 Mg Tab) 1 mg PO TID [facility] Stop: 09/08/24 13:59 Last Admin: 08/09/24 21:01 Dose: 1 mg Documented By: Admin: 08/09/24 13:14 Dose: 1 mg Documented By: GABBI Morphine Sulfate (Morphine Sulfate 2 Mg/Ml Carp) 2 mg IV Q4H PRN PRN Reason: Pain 6,7 Stop: 08/23/24 11:16 Last Admin: 08/09/24 16:15 Dose: 2 mg Documented By: GABBI Sertraline HCl (Sertraline Hcl 100 Mg Tablet) 100 mg PO BID [facility] Stop: 09/08/24 20:59 Last Admin: 08/09/24 20:57 Dose: 100 mg Documented By: EVER Discontinued Medications Sodium Chloride (Nss) 1,000 mls @ 999 mls/hr IV .Q1H1M ONE Stop: 08/09/24 10:31 Last Infusion: 08/09/24 11:18 Dose: Infused Documented By: Admin: 08/09/24 09:47 Dose: 999 mls/hr Documented By: BARBER Ciprofloxacin (Cipro / D5w) 400 mg in 200 mls @ 100 mls/hr IV NOW STA; Protocol Stop: 08/09/24 12:28 Last Infusion: 08/09/24 14:24 Dose: Infused Documented By: Admin: 08/09/24 11:42 Dose: 100 mls/hr Documented By: ALDO Metronidazole (Flagyl) 500 mg in 100 mls @ 100 mls/hr IV NOW STA; Protocol Stop: 08/09/24 11:28 Last Infusion: 08/09/24 12:58 Dose: Infused Documented By: Admin: 08/09/24 11:17 Dose: 100 mls/hr Documented By: ALDO Morphine Sulfate (Morphine Sulfate 2 Mg/Ml Carp) 2 mg IV NOW STA Stop: 08/09/24 09:41 Last Admin: 08/09/24 09:47 Dose: 2 mg Documented By: BARBER Medical Decision Making Laboratory Data 08/09/24 09:22 08/09/24 09:22 Lab Results 08/09/24 Range/Units 09:22 WBC 12.00 H (4.8-10.8) K/ul RBC 4.06 L (4.20-5.40) M/uL Hgb 10.5 L (12.0-16.0) g/dl Hct 32.9 L (37.0-47.0) % MCV 81.0 (80.0-100.0) fL MCH 25.9 (25.0-34.0) pg MCHC 31.9 L (32.0-36.0) g/dL RDW Std Deviation 46.7 H (36.4-46.3) fL RDW Coeff of Ridge 15.9 H (11.5-14.5) % Plt Count 284 (130-400) K/uL MPV 10.5 (9.4-12.4) fL Immature Gran % (Auto) 0.7 % Neut % (Auto) 78.1 % Lymph % (Auto) 11.9 % Treasure % (Auto) 7.4 % Eos % (Auto) 1.5 % Baso % (Auto) 0.4 % Neut # (Auto) 9.37 H (1.40-6.50) K/uL Lymph # (Auto) 1.43 (1.20-3.40) K/uL Treasure # (Auto) 0.89 H (0.11-0.59) K/uL Eos # (Auto) 0.18 (0.00-0.50) K/uL Baso # (Auto) 0.05 (0.00-0.20) K/uL Immature Gran # (Auto) 0.08 (0.01-0.20) K/uL Sodium 140 (136-145) mmol/L Potassium 3.6 (3.5-5.1) mmol/L Chloride 110 H (98-107) mmol/L Carbon Dioxide 24 (21-32) mmol/L Anion Gap 6 (3-11) BUN 7 (6-23) mg/dl Creatinine 0.69 (0.6-1.2) mg/dl Est Cr Clr Drug Dosing 91.7 ml/min eGFR 110.36 BUN/Creatinine Ratio 10.1 (10-20) Glucose 118 H (70-99(Fasting)) mg/dl Calcium 8.9 (8.6-10.3) mg/dl Total Bilirubin 0.3 (0.2-1.0) mg/dl AST 10 L (13-39) U/L ALT 7 (7-52) U/L Alkaline Phosphatase 79 (34-104) U/L Total Protein 6.8 (6.0-8.3) gm/dl Albumin 4.1 (3.4-5.0) gm/dl Globulin 2.7 (2.5-4.0) gm/dl Albumin/Globulin Ratio 1.5 (0.9-2) HCG, Qual Negative (Negative) MDM Narrative Patient was seen and evaluated as above in room B04. Review was performed of triage nursing notes and vital signs. I did review pertinent previous visits and patient history. After obtaining a thorough history and physical examination the above work up was performed. Patient presents to us today for the third time regarding left lower quadrant abdominal pain. The patient was seen here on 08/07/2024 at that time via EMS secondary to left lower quadrant abdominal pain. On that visit she underwent CT scan of the abdomen/pelvis as well as laboratory studies. Leukocytosis 15.[address] a CT scan at that time showed acute on chronic sigmoid diverticulitis with pericolonic fat stranding and with adjacent left adnexal ovarian ring-enhancing cyst with likely surrounding small immature edema. Patient then returned on 08/08/2024 (yesterday) and at that time underwent repeat CT scan of the abdomen/pelvis also showing diverticulitis and probable collapsing cyst or copious luteum cyst on the left. She also underwent a pelvic ultrasound showing heterogeneous structure in left adnexa. No torsion was noted on the left. The right was not visualized secondary to overlying bowel gas. The patient has a benign abdominal exam. I do not believe that she requires a third CT scan at this time. I did obtain an EKG for this patient to assess QTc noting current medication regimen. This revealed per my interpretation normal sinus rhythm at a rate of 88 bpm. QTc 411. QRS 76. No ST elevation on this rhythm tracing In discussing further options with the patient we will proceed with inpatient management noting her ongoing discomfort with the nausea/vomiting. Patient notes that she has done well with Cipro/Flagyl previously and I reviewed benefit versus risks with the patient. We will proceed. This was ordered. I also ordered IV morphine for pain. Case discussed with the hospitalist service. Please refer to further documentation regarding her stay. GCS: 15 In the evaluation and treatment of this patient the following differential diagnoses were entertained: Diverticulitis, perforation, abscess, bowel obstruction, UTI, among others Impression & Plan Acute diverticulitis, LLQ abdominal pain, Nausea & vomiting Discharge Plan Visit Data Chief Complaint: Abdominal Pain Stated Complaint: ABD PAIN ED Provider: Reymundo Eng ED Midlevel Provider: Victoriano Avila Discharge Problem: Acute diverticulitis, LLQ abdominal pain, Nausea & vomiting Patient Disposition: Admitted As Inpatient Condition: Good Discharge Instructions Interventions: ED Discharge Assessment Last Done: 08/09/24 11:55
[2024-08-09] MEDS: MoRPHine SULFATE 2 MG/ML CARP IV STA (09:47)
[2024-08-09] MEDS: SODIUM CHLORIDE 0.9% 1,000 ML IV ONE (09:47)
[2024-08-09 09:49] LABS: Basophils # (auto) 0.05 K/uL (0.00-0.20); Basophils % (auto) 0.4 %; Eosinophils # (auto) 0.18 K/uL (0.00-0.50); Eosinophils % (auto) 1.5 %; Hematocrit (blood only) 32.9 % (37.0-47.0); Hemoglobin 10.5 g/dl (12.0-16.0); Immature Granulocytes # (auto) 0.08 K/uL (0.01-0.20); Immature Granulocytes % (auto) 0.7 %; Lymphocytes # (auto) 1.43 K/uL (1.20-3.40); Lymphocytes % (auto) 11.9 %; Mean Corpuscular Hemoglobin 25.9 pg (25.0-34.0); Mean Corpuscular Hgb Conc 31.9 g/dL (32.0-36.0); Mean Platelet Volume 10.5 fL (9.4-12.4); Monocytes # (auto) 0.89 K/uL (0.11-0.59); Monocytes % (auto) 7.4 %; Neutrophils # (auto) 9.37 K/uL (1.40-6.50); Neutrophils % (auto) 78.1 %; Platelet Count 284 K/uL (130-400); RDW Coefficient of Variation 15.9 % (11.5-14.5); RDW Standard Deviation 46.7 fL (36.4-46.3); Red Blood Count 4.06 M/uL (4.20-5.40)
[2024-08-09 09:53] LABS: Pregnancy Test, Serum Negative (Negative)
[2024-08-09 10:00] LABS: Albumin Globulin Ratio 1.5 (0.9-2); Albumin Level 4.1 gm/dl (3.4-5.0); BUN Creatinine Ratio 10.1 (10-20); Bilirubin,Total 0.3 mg/dl (0.2-1.0); Calcium 8.9 mg/dl (8.6-10.3); Creatinine Clr Calc Pharmacy 91.7 ml/min; Globulin 2.7 gm/dl (2.5-4.0); Potassium 3.6 mmol/L (3.5-5.1); Total Protein 6.8 gm/dl (6.0-8.3)
[2024-08-09] MEDS ORDERED: ONDANSETRON INJ 2 MG/ML 2 ML VIAL IV PRN (11:13)
[2024-08-09] MEDS ORDERED: MoRPHine SULFATE 4 MG/ML 1 ML CARP\\VIAL IV PRN ×2 (11:17→13:35)
[2024-08-09] MEDS ORDERED: MoRPHine SULFATE 2 MG/ML CARP IV PRN (11:17)
[2024-08-09] MEDS: metroNIDAZOLE 500 MG/100 ML BAG IV STA (11:17)
--- NOTE | 2024-08-09 11:28 | History & Physical Report ---
Date of Service August 09, 2024 Assessment & Plan (1) Acute diverticulitis: (2) SIRS (systemic inflammatory response syndrome): Plan This is a 44 year old female with past medical history of anxiety, COPD who presented to the ED on 08/09/24 for ongoing abdominal pain. While in the ED, she was found to have a leukocytosis of 12.00. Her procal was negative on 08/08. Her CTAP on 08/08 revealed sigmoid diverticulitis w/ no evidence of perforation/abscess. Similar findings also on the CTAP from 08/07. She was given IVF, IV Morphine, and IV Cipro/Flagyl. #Acute Diverticulitis/SIRS/Sepsis Meeting SIRS criteria on admission with heart rate > 90 and WBC > 12 CTAP on 08/07 and 08/08acute uncomplicated sigmoid diverticulitis CBC with leukocytosis of 12. BMP stable. Procalcitonin negative on 08/08, urinalysis neg 08/08 Blood cultures pending from 08/08 S/p Cipro/Flagyl in the EDcontinue upon admission Morphine as needed for pain, Zofran as needed for N/V Continue IV LR to promote rehydration until able to tolerate PO intake. N.p.o., allowed sips/chipsadvance diet as tolerated Needs colonoscopy in 6-8 weeks after discharge #HTN - BP stable; Hold Lisinopril while NPO #GERD - Continue PPI #Anxiety - Continue Lorazepam TID & Zoloft BID Left ovarian cyst seen on imaging x 2. Patient is aware - recommend following up with gynecology on outpatient basis upon discharge. DVT prophylaxis: SCD's, encourage ambulation Code: DNR/DNI Case was discussed w/ Dr. Ford at time of admission History of Present Illness Primary Care Provider: Salo Flores MD This is a 44 year old female with past medical history of anxiety, COPD who presented to the ED on 08/09/24 for ongoing abdominal pain. May was seen and examined this morning. She has been in the ED on 08/07, 08/08 & today for left sided abdominal pain. She was diagnosed with diverticulitis on 08/07 and sent home with Cipro/flagly. She was unable to take these medications due to nausea & vomiting. She then returned back on the due to N/V and was given another dose of IV antibiotics. She reports after returning home from the ED last night she went to bed and when she woke up she still did not feel well. She felt nauseous and was concerned to take PO abx on an empty stomach so she did not take them. she states her last episode of vomiting was on the way to the ED this AM. She states her symptoms started on Monday and continued to persist. She has a history of 3 episodes of diverticulitis in 2014, 2016, & 2017. She has not had surgery in the past on her bowels. She states she was having some diarrhea earlier this week but this has since resolved. She denies fevers/chills but states she has felt warmer than usual at home. She denied any chest pain or shortness of breath. Denied lower extremity edema. Denied urinary urgency/frequency/dysuria. While in the ED, she was found to have a leukocytosis of 12.00. Her procal was negative on 08/08. Her CTAP on 08/08 revealed sigmoid diverticulitis w/ no evidence of perforation/abscess. Similar findings also on the CTAP from 08/07. She was given IVF, IV Morphine, and IV Cipro/Flagyl. Code discussion did take place with May and she confirms she is a DNR/DNI Allergies Allergy/AdvReac Type Severity Reaction Status Date / Time latex Allergy Intermediate rash, when Verified 08/09/24 09:56 wears gloves pseudoephedrine Allergy Intermediate Hives Verified 08/09/24 09:56 tripelennamine Allergy Intermediate Hives Verified 08/09/24 09:56 triprolidine Allergy Intermediate Hives Verified 08/09/24 09:56 adhesive Allergy Mild Redness of Verified 08/09/24 09:56 Skin amoxicillin AdvReac Severe severe Verified 08/09/24 09:56 diarrhea azithromycin AdvReac Severe severe Verified 08/09/24 09:56 [From Zithromax Z-Cesario] stomach cramps clavulanic acid AdvReac Severe severe Verified 08/09/24 09:56 diarrhea butorphanol [From Stadol] AdvReac Intermediate loopy Verified 08/09/24 09:56 cortisone AdvReac Intermediate Flushing Verified 08/09/24 09:56 doxycycline AdvReac Intermediate nausea/vomi Verified 08/09/24 09:56 ting prednisone AdvReac Intermediate Anxiety Verified 08/09/24 09:56 STEROIDS AdvReac Intermediate flushing Uncoded 08/09/24 09:56 Home Medications Medication Instructions Recorded Confirmed Type cyanocobalamin (vitamin B-12) 1,000 mcg IM MONTHLY #30 mL 04/15/20 08/09/24 Rx 1,000 mcg/mL injection solution acetaminophen 500 mg tablet 500 mg PO QID PRN Pain 12/21/22 08/09/24 History Medical Marijuana 1 dose inhalation DIRECTED PRN 09/13/23 08/09/24 History NEEDED PER PT rizatriptan 10 mg tablet (Maxalt) See Rx Instructions PO .COMPLEX 09/13/23 08/09/24 History PRN Migraine Headache lisinopril 10 mg tablet 10 mg PO DAILY #90 tabs 02/15/24 08/09/24 Rx albuterol sulfate 90 mcg/actuation 1 - 2 inh inhalation Q4H PRN 04/16/24 08/09/24 Rx aerosol inhaler Shortness Of Breath Or Wheezing #8.5 grams pantoprazole 40 mg tablet,delayed 40 mg PO QAM #90 tabs 06/15/24 08/09/24 Rx release sertraline 100 mg tablet 200 mg (2 x 100 mg) PO HS #180 tabs 07/26/24 08/09/24 Rx cholecalciferol (vitamin D3) 1,250 50,000 unit PO WK #14 caps 08/05/24 08/09/24 Rx mcg (50,000 unit) capsule promethazine 25 mg tablet 25 mg PO Q6H PRN nausea and 08/08/24 08/09/24 Rx vomiting #20 tabs lorazepam 1 mg tablet 1 mg PO TID anxiety 08/09/24 08/09/24 History Past Med/Surg History Problem List (Updated 08/09/24 @ 11:41 by Raquel Watkins PA-C) SIRS (systemic inflammatory response syndrome) Nausea & vomiting (Acute) Left ovarian cyst (Acute) Diverticulitis (Acute) LLQ abdominal pain (Acute) Acute diverticulitis (Acute) H/O endoscopy Hives Thrush Scalp pruritus Ingrown hair Coccygeal pain, chronic Bug bites Iron deficiency Weight loss Smoking greater than 20 pack years Musculoskeletal pain Contraception management Screening for STD (sexually transmitted disease) Sinusitis chronic, frontal Encounter for pre-operative examination Anxiety (Acute) Nonspecific abdominal pain (Acute) Pain, dental (Acute) Left sided abdominal pain (Acute) Headache (Acute) Asthma (Chronic) H/O 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 COPD (chronic obstructive pulmonary disease) (Chronic) Migraine (Chronic) Hypertension (Chronic) Abdominal pain (Acute) Diverticulitis of sigmoid colon (Acute) GERD (gastroesophageal reflux disease) B12 deficiency Irritable bowel syndrome (Acute) Rectocele (Acute) Medical History History of cardiac murmur as a child COPD (chronic obstructive pulmonary disease) History of anesthesia reaction difficulty waking Fatty liver disease, nonalcoholic Hiatal hernia Diverticular disease Depression Migraine Anxiety Hypertension Asthma inhaler prn (few times per month) Surgical History History of loop electrical excision procedure (LEEP) History of colposcopy History of appendectomy History of colonoscopy History of tooth extraction all teeth removed Family History Sister Family history of reaction to anesthesia vomiting Grandmother (Maternal) Family history of diabetes mellitus Grandmother (Paternal) Family history of diabetes mellitus Osteoporosis Grandfather (Paternal) Family history of diabetes mellitus Father Heart disease Hypertension Grandfather Stroke Aunt Breast cancer Colorectal cancer Mother Heart disease Lung cancer Uncle Lung cancer maternal Social History Smoking Status: Current every day smoker Tobacco Type: Cigarettes and E-cigarettes / Vaping Age Started Using Tobacco: 14; packs per day: 1.5; Cigarettes Per Day: 30 per day - advised; Second Hand Exposure: Yes; Do You Dip or Chew Tobacco: No; Hx Alcohol Use: No Hx Substance Use: Yes (Medical Marijuana) Last Used Substance Other:: 12/20/22 Preferred Language: Icelandic Communication Ability: Effective Steward/Stewardess Required: No Beliefs That Will Affect Care: None marital status: Current Living Situation: Alone current occupational status: employed Feels Safe at Home: Yes Safety Concerns: Feels Safe At This Time Childhood Exposure to Second-Hand Smoke: Yes Dental Care, Regularly: No Physical Activity Frequency: Does not Exercise Seatbelt Use: never Sunscreen Use: Yes Assistive Devices: Glasses Physical Exam Physical Exam: General: no acute distress; non-toxic appearing; well-nourished; cooperative HEENT: normocephalic, atraumatic; no scleral icterus; PERRLA w/ EOMs intact; vision and hearing grossly intact Neck: trachea midline Skin: warm, dry without signs of tenting; no cyanosis; no rashes, bruising, lesions, or erythema noted CV: RRR; S1/S2 normal; no murmurs/rubs/gallops Lungs: no acute respiratory distress; symmetrical chest wall expansion; clear breath sounds across all lung wiseman w/o adventitious sounds; no wheezing ABD: Soft, BS present; + tenderness throughout abdominal but specifically in LLQ. MSK: no edema noted in the LEs b/l, nonerythematous Neuro: A&Ox3; normal mood and affect; fluent speech; no focal deficits Results & Data Results & Data Vital Signs (Past 12 Hours) Vital Signs Temp Pulse Pulse Resp BP BP Pulse Ox 08/09/24 11:17 89 24 135/82 98 08/09/24 10:02 08/09/24 10:00 94 H 18 96 08/09/24 10:00 124/85 08/09/24 09:54 94 H 19 97 08/09/24 09:33 85 18 97 08/09/24 09:30 148/82 H 08/09/24 09:30 148/82 H 08/09/24 09:30 148/82 H 08/09/24 09:27 90 23 96 08/09/24 09:25 90 08/09/24 09:24 15 08/09/24 09:23 132/97 08/09/24 09:23 132/97 08/09/24 09:23 132/97 08/09/24 09:21 90 20 08/09/24 09:09 37.2 C 95 H 16 167/81 H 97 O2 Del Method 08/09/24 11:17 Room Air 08/09/24 10:02 Room Air 08/09/24 10:00 08/09/24 10:00 08/09/24 09:54 08/09/24 09:33 08/09/24 09:30 08/09/24 09:30 08/09/24 09:30 08/09/24 09:27 08/09/24 09:25 08/09/24 09:24 08/09/24 09:23 08/09/24 09:23 08/09/24 09:23 08/09/24 09:21 08/09/24 09:09 Room Air Supervising Physician Co-Signing Physician Notes PA Supervision Note: I personally saw and examined the patient. I verified all rea points and agree with KEVIN Watkins with the following exceptions and/or additions: S-Pt here with lower abd pain and significant nausea/vomiting. Not able to keep down po abx for acute diverticulitis she was diagnosed with yesterday in ED. ALso c/o chronic dry mouth and tongue that bleeds easily ad gets thrush often. History and ROS reviewed otherwise as above Last colonoscopy around 7 years ago O- Vitals reviewed Gen: [AAOx3, NAD] HEENT: [anicteric sclerae, EOMI] CV: [RRR no mgr nl S1S2] Pulm: [CTAB no wcr] Abd: [+BS soft +TTP suprapubic region and LLQ without guarding or rebound] CBC, BMP reviewed A/P-44 yo female here with acute sigmoid diverticulitis, failing outpt treatment with po abx due to N/V. Admit for IVFs, NPO status, antiemetics, pain control, and IV antibiotics Needs colonoscopy in 6-8 weeks after discharge PG Care Time/CCT Total # of Minutes Spent Total Time Spent with Patient: Total time spent is greater than 50% in coordination of care (as documented) at patient's floor/unit and/or counseling patient: Coding Level of Care Code 57542 INT INP/OBS CARE 2/55MIN Diagnoses Acute diverticulitis K57.92 SIRS (systemic inflammatory response syndrome) R65.10
[2024-08-09] MEDS: LACTATED RINGER'S 1,000 ML IV SCH (11:42)
[2024-08-09] MEDS: CIPROFLOXACIN / D5W 400 MG/200 ML BAG IV STA (11:42)
[2024-08-09] MEDS: LORazepam 1 MG TAB PO SCH (13:14)
--- NOTE | 2024-08-09 14:54 | Electrocardiogram Report ---
Test Reason : Blood Pressure : */* mmHG Vent. Rate : 88 BPM Atrial Rate : 88 BPM P-R Int : 162 ms QRS Dur : 76 ms QT Int : 340 ms P-R-T Axes : 81 90 69 degrees QTcB Int : 411 ms Normal sinus rhythm Rightward axis Borderline ECG When compared with ECG of 08-Mar-2004 21:03, No significant change was found Confirmed by Lacho Sampson ([id number]) on 08/09/2024 2:54:17 PM Referred By: REFERRED SELF Confirmed By: Lacho Sampson
[2024-08-09] MEDS: MoRPHine SULFATE 2 MG/ML CARP IV PRN (16:15)
[2024-08-09] MEDS: metroNIDAZOLE 500 MG/100 ML BAG IV SCH (20:56)
[2024-08-09] MEDS: SERTRALINE HCL 100 MG TABLET PO SCH (20:57)
[2024-08-09] MEDS: PANTOprazole 40 MG/10 ML SYR IV SCH (21:58)
[2024-08-09] MEDS: KETOROLAC TROMETHAMINE 15 MG/ML VIAL IV PRN (21:58)
[2024-08-09] MEDS: CIPROFLOXACIN / D5W 400 MG/200 ML BAG IV SCH (23:54)
[2024-08-10] MEDS: BUTALBITAL/ACETAMIN/CAFFEINE TAB PO PRN (00:16)
[2024-08-10 06:36] LABS: Basophils # (auto) 0.05 K/uL (0.00-0.20); Basophils % (auto) 0.6 %; Eosinophils # (auto) 0.24 K/uL (0.00-0.50); Eosinophils % (auto) 2.8 %; Hematocrit (blood only) 28.8 % (37.0-47.0); Hemoglobin 9.1 g/dl (12.0-16.0); Immature Granulocytes # (auto) 0.04 K/uL (0.01-0.20); Immature Granulocytes % (auto) 0.5 %; Lymphocytes # (auto) 1.46 K/uL (1.20-3.40); Lymphocytes % (auto) 17.1 %; Mean Corpuscular Hemoglobin 25.6 pg (25.0-34.0); Mean Corpuscular Hgb Conc 31.6 g/dL (32.0-36.0); Mean Corpuscular Volume 80.9 fL (80.0-100.0); Mean Platelet Volume 10.5 fL (9.4-12.4); Monocytes # (auto) 0.67 K/uL (0.11-0.59); Monocytes % (auto) 7.8 %; Neutrophils # (auto) 6.09 K/uL (1.40-6.50); Neutrophils % (auto) 71.2 %; Platelet Count 263 K/uL (130-400); RDW Coefficient of Variation 15.7 % (11.5-14.5); RDW Standard Deviation 46.3 fL (36.4-46.3); Red Blood Count 3.56 M/uL (4.20-5.40); White Blood Count 8.55 K/ul (4.8-10.8)
[2024-08-10 07:11] LABS: Calcium 8.4 mg/dl (8.6-10.3); Creatinine Clr Calc Pharmacy 88.7 ml/min; Magnesium 1.8 mg/dl (1.7-2.4); Potassium 3.4 mmol/L (3.5-5.1)
[2024-08-10 07:18] LABS: Folate (Folic Acid),Ser orPlas 8.21 ng/ml (>5.38)
[2024-08-10 07:19] LABS: Thyroid Stimulating Hormone 1.883 uIu/ml (0.300-4.500)
[2024-08-10 07:24] LABS: Ferritin 21.4 ng/ml (8-388)
--- NOTE | 2024-08-10 08:00 | Hospitalist Progress Note ---
Date of Service August 10, 2024 Assessment & Plan (1) Acute diverticulitis: (2) SIRS (systemic inflammatory response syndrome): Plan This is a 44 year old female with past medical history of anxiety, COPD who presented to the ED on 08/09/24 for ongoing abdominal pain. While in the ED, she was found to have a leukocytosis of 12.00. Her procal was negative on 08/08. Her CTAP on 08/08 revealed sigmoid diverticulitis w/ no evidence of perforation/abscess. Similar findings also on the CTAP from 08/07. She was given IVF, IV Morphine, and IV Cipro/Flagyl. #Acute Diverticulitis/SIRS/Sepsis Meeting SIRS criteria on admission with heart rate > 90 and WBC > 12 CTAP on 08/07 and 08/08acute uncomplicated sigmoid diverticulitis CBC with resolution of leukocytosis. BMP w/ mildly low K which was repleted. Procalcitonin negative on 08/08, urinalysis neg 08/08 Blood cultures neg @ 24 hr luis Switch from Cipro/Flagyl to PO Augmentin starting evening of 08/10 to ensure she can tolerate prior to dc. Toradol/Morphine as needed for pain, Zofran as needed for N/V Continue IVF, decreased rate to 80ml/hr Advance diet to low fiber Needs colonoscopy in 6-8 weeks after discharge #Iron Deficiency Iron panel checked indicating low iron levels Recommend PO supplementation - defer to PCP to further discuss this. #B12 deficiency - B12 low at 129, gets monthly injections #Vitamin D deficiency - Low at 11.3, takes 50k unit capsule once weekly. #HTN - BP stable; resume lisinopril now that able to eat #GERD - Continue PPI #Anxiety - Continue Lorazepam TID & Zoloft BID Left ovarian cyst seen on imaging x 2. Patient is aware - recommend following up with gynecology on outpatient basis upon discharge. DVT prophylaxis: SCD's, encourage ambulation Code: DNR/DNI Admission and Anticipated Discharge Date Admission Date: August 09, 2024 Subjective May was seen and examined this morning. She states that her pain is better today in her abdomen. She states that she is nauseous because she is hungry & would like to eat more than clear liquids. She expressed concerns about possible thrush in her mouth & states that she is getting worked up outpatient for Sgjoren syndrome possibly. She also states she is nervous about transitioning the PO antibiotics, states she doesn't like the taste of PO flagyl. She states that previously when she had Augmentin, she only had diarrhea and that is why she won't take it any more. She states that she would be open to trying Augmentin instead of the cipro/flagyl combo. She states she is ready to return home soon. Physical Exam Physical Exam: General: no acute distress; non-toxic appearing; well-nourished; cooperative HEENT: normocephalic, atraumatic; no scleral icterus; PERRLA w/ EOMs intact; vision and hearing grossly intact Neck: trachea midline Skin: warm, dry without signs of tenting; no cyanosis; no rashes, bruising, lesions, or erythema noted MSK: no edema noted in the LEs b/l, nonerythematous Neuro: A&Ox3; normal mood and affect; fluent speech; no focal deficits Results & Data Results & Data Vital Signs (Past 12 Hours) Vital Signs Temp Pulse Pulse Resp BP Pulse Ox O2 Del Method 08/10/24 07:46 37.4 C 98 H 18 173/90 H 98 Room Air 08/10/24 05:42 79 08/10/24 03:10 36.8 C 74 12 123/68 95 Room Air 08/09/24 23:13 36.7 C 73 16 124/76 95 Room Air 08/09/24 22:28 79 PG Care Time/CCT Total # of Minutes Spent Total Time Spent with Patient: Total time spent is greater than 50% in coordination of care (as documented) at patient's floor/unit and/or counseling patient: Coding Level of Care Code 38423 SUB INP/OBS CARE 2/35MIN Diagnoses Acute diverticulitis K57.92 SIRS (systemic inflammatory response syndrome) R65.10
[2024-08-10] MEDS ORDERED: PANTOprazole 40 MG TAB PO SCH (09:00)
[2024-08-10] MEDS: POTASSIUM CHLORIDE CRTAB 20 MEQ TABCR PO STA (10:16)
[2024-08-10] MEDS: PROMETHAZINE HCL 25 MG TAB PO PRN (10:41)
[2024-08-10] MEDS ORDERED: Nursing to Pharmacy Communication SCH (14:30)
[2024-08-10] MEDS: AMOXICILLIN/CLAVULANATE 875 MG TAB PO SCH (16:57)
[2024-08-10] MEDS ORDERED: lisinopril 10 MG TAB PO SCH (21:36)
[2024-08-11 02:46] VITALS: O2SAT 96
[2024-08-11 07:46] VITALS: RESP 18; TEMP 98.6
[2024-08-11 08:28] LABS: Hemoglobin 9.6 g/dl (12.0-16.0); Mean Corpuscular Hemoglobin 25.9 pg (25.0-34.0); Mean Corpuscular Volume 81.1 fL (80.0-100.0); Mean Platelet Volume 10.3 fL (9.4-12.4); Platelet Count 279 K/uL (130-400); RDW Coefficient of Variation 15.6 % (11.5-14.5); RDW Standard Deviation 45.6 fL (36.4-46.3); White Blood Count 6.31 K/ul (4.8-10.8)
[2024-08-11 08:41] LABS: BUN Creatinine Ratio 10.6 (10-20); Calcium 8.7 mg/dl (8.6-10.3); Creatinine Clr Calc Pharmacy 94.7 ml/min; Potassium 3.8 mmol/L (3.5-5.1)
[2024-08-11] MEDS: ACETAMINOPHEN 500 MG TAB PO PRN (08:42)
[2024-08-11] MEDS ORDERED: lisinopril 10 MG TAB PO SCH (09:00)
--- NOTE | 2024-08-11 09:39 | Discharge Summary ---
Discharge Summary Date of Service August 11, 2024 Principal Dx & Hospital Course #1 = Principal Diagnosis (1) Acute diverticulitis: (2) SIRS (systemic inflammatory response syndrome): Plan This is a 44 year old female with past medical history of anxiety, COPD who presented to the ED on 08/09/24 for ongoing abdominal pain. #Acute Diverticulitis/SIRS/Sepsis Met SIRS criteria on admission with heart rate > 90 and WBC > 12 CTAP on 08/07 and 08/08acute uncomplicated sigmoid diverticulitis CBC with resolution of leukocytosis. BMP stable Procalcitonin negative on 08/08, urinalysis neg 08/08 Blood cultures neg @ 48 hr luis Continue Augmentin on discharge Phenergan prn for N/V Advanced diet to low fiber Needs colonoscopy in 6-8 weeks after discharge --> discuss w/ PCP @ follow up visit. #Iron Deficiency Iron panel checked indicating low iron levels Recommend PO supplementation - defer to PCP to further discuss this. #B12 deficiency - B12 low at 129, gets monthly injections #Vitamin D deficiency - Low at 11.3, takes 50k unit capsule once weekly. #HTN - BP stable; resume lisinopril now that able to eat #GERD - Continue PPI #Anxiety - Continue Lorazepam TID & Zoloft BID Left ovarian cyst seen on imaging x 2. Patient is aware - recommend following up with gynecology on outpatient basis upon discharge. Admission HPI Per Admitting Provider This is a 44 year old female with past medical history of anxiety, COPD who presented to the ED on 08/09/24 for ongoing abdominal pain. May was seen and examined this morning. She has been in the ED on 08/07, 08/08 & today for left sided abdominal pain. She was diagnosed with diverticulitis on 08/07 and sent home with Bee/tanesha. She was unable to take these medications due to nausea & vomiting. She then returned back on the due to N/V and was given another dose of IV antibiotics. She reports after returning home from the ED last night she went to bed and when she woke up she still did not feel well. She felt nauseous and was concerned to take PO abx on an empty stomach so she did not take them. she states her last episode of vomiting was on the way to the ED this AM. She states her symptoms started on Monday and continued to persist. She has a history of 3 episodes of diverticulitis in 2014, 2015, & 2016. She has not had surgery in the past on her bowels. She states she was having some diarrhea earlier this week but this has since resolved. She denies fevers/chills but states she has felt warmer than usual at home. She denied any chest pain or shortness of breath. Denied lower extremity edema. Denied urinary urgency/frequency/dysuria. While in the ED, she was found to have a leukocytosis of 12.00. Her procal was negative on 08/08. Her CTAP on 08/08 revealed sigmoid diverticulitis w/ no e vidence of perforation/abscess. Similar findings also on the CTAP from 08/07. She was given IVF, IV Morphine, and IV Cipro/Flagyl. Code discussion did take place with Dana and she confirms she is a DNR/DNI Discharge Exam General: no acute distress; non-toxic appearing; well-nourished; cooperative; tearful HEENT: normocephalic, atraumatic; no scleral icterus; PERRLA w/ EOMs intact; vision and hearing grossly intact Neck: trachea midline Skin: warm, dry without signs of tenting; no cyanosis; no rashes, bruising, lesions, or erythema noted Lungs: no acute respiratory distress; symmetrical chest wall expansion MSK: no edema noted in the LEs b/l, nonerythematous Neuro: A&Ox3; normal mood and affect; fluent speech; no focal deficits Discharge Plan Discharge Items Patient Disposition: Home - Self-Care Reason For Visit: DIVERTICULITIS Discharge Diagnosis: diverticulitis Condition on Discharge: Good Activity: Resume your previous activity Non-emergency contact: Primary Care Provider Call non-emergency contact if: you have any medication questions, your symptoms worsen and your pain is not controlled Follow-up/Referrals: Salo Flores MD [Primary Care Provider] - 08/20/24 3:00 pm (Appointment is with Sultana Shaw PA-C. ) Diet: Low Fiber Addtl Attending Provider Instructions: Ms. Broussard, You were recently hospitalized for ongoing abdominal pain secondary to diverticulitis. You were treated appropriately with antibiotics and had improvement in your symptoms. Please see recommendations below regarding your discharge. 1. Please take Augmentin twice daily for the next 5 days. Your next dose at home will be this evening, 08/11. 2. Please take with food to avoid upset stomach. Please also take with a probiotic to help with GI side effects. 3. Please use Phenergan as needed every 6 hours for nausea/vomiting. 4. You may resume the remainder of your outpatient medications. 5. Please follow up with your PCP within 1-2 weeks of discharge. - At that appointment, please discuss a colonoscopy. After any episode of diverticulitis it is recommended a follow up colonoscopy 6-8 weeks following the infection. If you develop any severe abdominal pain, uncontrollable nausea/vomiting, chest pain, shortness of breath - please report back to the ED for further care. Sincerely, Raquel Watkins PA-C Pending Studies at Discharge: No Stand-Alone Forms: My [facility], Smoking Cessation Medications and DC Order Prescriptions: New promethazine 25 mg Tablet 25 mg PO Q6H PRN (Reason: nausea and vomiting) Qty: 30 0RF amoxicillin-pot clavulanate 875-125 mg Tablet 1 tab PO BIDM Qty: 10 0RF Continued lisinopril 10 mg tablet 10 mg PO DAILY Qty: 90 1RF albuterol sulfate 90 mcg/actuation HFA aerosol inhaler 1 - 2 inh INHALATION Q4H PRN (Reason: Shortness Of Breath Or Wheezing) Qty: 8.5 3RF pantoprazole 40 mg tablet,delayed release (DR/EC) 40 mg PO QAM Qty: 90 3RF Rx Instructions: TAKE 1 TABLET BY MOUTH EVERY DAY sertraline 100 mg tablet 200 mg PO HS Qty: 180 1RF Patient Comments: TAKES 100 MG BID cholecalciferol (vitamin D3) 1,250 mcg (50,000 unit) capsule 50,000 unit PO WK Qty: 14 0RF Rx Instructions: 50,000 units PO once weekly for 12 weeks ; cyanocobalamin (vitamin B-12) 1,000 mcg/mL solution 1,000 mcg IM MONTHLY Qty: 30 3RF acetaminophen 500 mg Tablet 500 mg PO QID PRN (Reason: Pain) rizatriptan [Maxalt] 10 mg tablet See Rx Instructions PO .COMPLEX PRN (Reason: Migraine Headache) Rx Instructions: take 1 tab at onset of headache; if no relief may repeat 1 tab after at least 2 hrs; max = 3 tabs/24 hr PO Medical Marijuana 1 dose inhalation DIRECTED PRN (Reason: NEEDED PER PT) lorazepam 1 mg tablet 1 mg PO TID Rx Instructions: Ongoing therapy Supervising physician Salo Flores MD JIGAR [id number] Discontinued promethazine 25 mg tablet 25 mg PO Q6H PRN (Reason: nausea and vomiting) Qty: 20 0RF Discharge Orders: Discharge Order (Routine); Ordered 08/11/24 Ordered By: Raquel Watkins Admission Data Admit Date/Time: 08/09/24 11:13 Attending Provider: Keith Kaur Admit Provider: Lexi Ford Primary Care Provider: Salo Flores Other Providers: Lexi Ford Other Interventions: Discharge Summary Assessment (RN) Last Done: 08/11/24 09:49 Hospital Stay Data Consultations 08/09/24 10:38 ED Decision to Admit Stat Pending Results Patient Have Any Pending Studies at Discharge: No Discharge Instructions Given to Patient (Per Discharging Provider) Ms. Broussard, Asael were recently hospitalized for ongoing abdominal pain secondary to diverticulitis. You were treated appropriately with antibiotics and had improvement in your symptoms. Please see recommendations below regarding your discharge. 1. Please take Augmentin twice daily for the next 5 days. Your next dose at home will be this evening, 08/11. 2. Please take with food to avoid upset stomach. Please also take with a probiotic to help with GI side effects. 3. Please use Phenergan as needed every 6 hours for nausea/vomiting. 4. You may resume the remainder of your outpatient medications. 5. Please follow up with your PCP within 1-2 weeks of discharge. - At that appointment, please discuss a colonoscopy. After any episode of diverticulitis it is recommended a follow up colonoscopy 6-8 weeks following the infection. If you develop any severe abdominal pain, uncontrollable nausea/vomiting, chest pain, shortness of breath - please report back to the ED for further care. Sincerely, Raquel Watkins PA-C Total Time Total Time Spent Total Time Spent (In Minutes): 45 Total Time Includes: Examination of the Patient, Discharge Planning and Medication Reconciliation Coding Level of Care Code 26342 INP/OBS DISCH >30 MIN Diagnoses Acute diverticulitis K57.92 SIRS (systemic inflammatory response syndrome) R65.10
[2024-08-11 09:50] VITALS: BP 123/69; PULSE 83
== END 2024-08-11 11:19 | disposition home or self-care (01) | DRG 392 ==
LOC: ED 08:58 → 2N 11:13 → INTOOBSV 11:13 → SUATTDRO 11:13 → 2N 11:55